=== PATIENT | male | born 1955 | race Two or more races ===

== ENCOUNTER 2024-10-18 13:50 | Inpatient (IN) ==
--- NOTE | 2024-10-18 14:32 | Emergency Department Note ---
Impression & Plan Back pain Still a patient ED Provider Note HPI: History obtained from Patient and family at the bedside. The patient is a 69-year-old male who presents emergency department with his son in law and family at the bedside of concern for back pain. Patient son states that the patient had multiple falls recently and was ultimately diagnosed with a subdural hematoma here in the ER earlier this month that required evacuation at [facility] on 10/11/2024. According to family, after the patient's procedure the patient did have to stay on his back for a long period of time because he had drains placed. Over the past several days the patient has had increased difficulty with ambulation. His son in law states that this has been the case ever since his surgery. He requires full weight support to ambulate anywhere according to his son-in-law at the bedside. Patient's over the past several days has had worsening lower back pain. He denies any saddle anesthesia, denies any urinary incontinence, denies any recent fever. Patient states he actually did have this back pain prior to his surgery for the subdural hemorrhage however it is acutely worsened ever since he was inpatient for the procedure. ROS: - Per HPI Differential Diagnosis: Degenerative disease of the lumbar spine, compression fracture, herniated lumbar disc, cauda equina syndrome, amongst other potential pathologies. *Outpatient medications and allergy history reviewed. PE: General: Alert, frail-appearing, no acute distress HEENT: Normocephalic, trachea midline Eyes: Extraocular eye movement is intact, no scleral erythema Pulmonary: Clear to auscultation bilaterally, no wheezing Cardio: Regular rate and rhythm GI: Abdomen is soft to palpation : No suprapubic tenderness MSK: No evidence of trauma or malformation of the extremities, no edema Skin: No evidence of rash Neuro: Alert, no focal deficits, 5 out of 5 strength with dorsiflexion and plantarflexion of the bilateral lower extremities, minimal flexion at the bilateral hips secondary to pain in the back Psychiatric: Cooperative INDEPENDENT INTERPRETATIONS: bus monitor: (As interpreted by myself): - An order was placed for continuous cardiac monitoring - Patient was noted to be in sinus rhythm with a rate of 80 Interventions provided in ED: - IV morphine, IV Zofran Medical Decision Making: IV was established and lab work obtained, patient was placed on registered nurse cardiac. Lab work shows a mild leukocytosis at 12.8, hemoglobin is normal, platelet count is normal, CMP does not show any evidence of any critical findings. Urinalysis shows trace leukocyte esterase but no evidence of any blood. CT imaging of the lumbar spine was obtained that shows chronic appearing compression fracture at L1, moderate to severe canal narrowing is also noted at the L4-L5 level. On my reassessment the patient was attempting to give a urine sample and was unable to. He states he is actually had some difficulty urinating over about the past 24 hours and feels that he is retaining. Given his acutely worsening pain and urinary retention, MRI imaging of the lumbar spine was ordered. There was a delay to obtain MRI secondary to multiple other patients requiring MRIs as well as the patient requiring extensive clearance given his recent surgery. Patient was given an additional dose of morphine on my reassessment as he still had some pain. At the time of signout to my colleague the patient is next in line to receive an MRI of his lumbar spine to rule out cauda equina syndrome/compression given his urinary retention and back pain. At change of shift I did discuss the patient's plan of care with my colleague, Dr. Etienne, and he will follow-up on MRI imaging for the patient's final disposition. If MRI does not show any acute surgical abnormalities or cauda equina syndrome plan will be to admit the patient here to the hospital for PT/OT given his ambulatory dysfunction and for pain control. Patient and his son-in-law at the bedside were in agreement to this plan, patient was signed out to my colleague in stable condition pending MRI. Disposition discussion held by myself with: - Patient and son-in-law at the bedside Disposition: Handoff Augie Gallardo DO Emergency Medicine Past Med/Surg History Problem List (Updated 10/18/24 @ 20:59 by Augie Gallardo DO) Back pain (Acute) Fall (Acute) Right shoulder pain (Acute) Head injury (Acute) Bilateral subdural hematomas (Acute) Trauma (Acute) Social History Smoking Status: Never smoker Feels Safe at Home: Yes Allergies Allergies Allergy/AdvReac Type Severity Reaction Status Date / Time No Known Allergies Allergy Verified 10/18/24 16:16 Home Meds Home Medications Medication Instructions Recorded Confirmed multivit,calcium,min-folic acid 1 tab PO DAILY 10/18/24 10/18/24 240 mcg-D3 25 mcg-lycop 300 mcg tablet (One A Day Men Complete) Results & Data (ED) Vital Signs Vital Signs - 24 hr 10/18/24 13:56 10/18/24 14:01 10/18/24 14:43 Temperature 37.2 C Temperature Source Oral Pulse Rate 90 81 86 Pulse Rate from SpO2 Sensor Respiratory Rate 21 20 Blood Pressure 156/92 H 144/79 H Blood Pressure Mean 113 111 Pulse Oximetry 95 97 Oxygen Delivery Method Room Air Room Air Sepsis Recent Fever Within 48 Hours No Sepsis New/Unexplained Change in Mental Status N/A Sepsis Action Taken by Nursing No Action Required 10/18/24 14:44 10/18/24 16:00 10/18/24 18:03 Temperature Temperature Source Pulse Rate 92 H 72 Pulse Rate from SpO2 Sensor 92 H Respiratory Rate 19 Blood Pressure 129/84 Blood Pressure Mean 99 Pulse Oximetry 95 97 Oxygen Delivery Method Room Air Room Air Sepsis Recent Fever Within 48 Hours Sepsis New/Unexplained Change in Mental Status Sepsis Action Taken by Nursing 10/18/24 18:36 10/18/24 18:48 10/18/24 19:09 Temperature Temperature Source Pulse Rate 87 75 83 Pulse Rate from SpO2 Sensor 75 75 83 Respiratory Rate 17 18 21 Blood Pressure 148/78 H 125/81 158/86 H Blood Pressure Mean 101 95 110 Pulse Oximetry 96 96 95 Oxygen Delivery Method Room Air Room Air Room Air Sepsis Recent Fever Within 48 Hours Sepsis New/Unexplained Change in Mental Status Sepsis Action Taken by Nursing 10/18/24 19:30 10/18/24 19:54 Temperature Temperature Source Pulse Rate 76 82 Pulse Rate from SpO2 Sensor 76 79 Respiratory Rate 22 22 Blood Pressure 154/74 H 152/82 H Blood Pressure Mean 100 105 Pulse Oximetry 96 97 Oxygen Delivery Method Room Air Room Air Sepsis Recent Fever Within 48 Hours Sepsis New/Unexplained Change in Mental Status Sepsis Action Taken by Nursing Laboratory Data 10/18/24 14:00 10/18/24 14:00 Lab Results 10/18/24 10/18/24 Range/Units 14:00 17:09 WBC 12.82 H (4.8-10.8) K/ul RBC 4.88 (4.70-6.10) M/uL Hgb 14.4 (14.0-18.0) g/dl Hct 42.7 (42.0-52.0) % MCV 87.5 (80.0-100.0) fL MCH 29.5 (25.0-34.0) pg MCHC 33.7 (32.0-36.0) g/dL RDW Std Deviation 41.9 (36.4-46.3) fL RDW Coeff of Shaheed 13.1 (11.5-14.5) % Plt Count 207 (130-400) K/uL MPV 10.5 (9.4-12.4) fL Immature Gran % (Auto) 0.3 % Neut % (Auto) 76.5 % Lymph % (Auto) 13.3 % Webster % (Auto) 9.6 % Eos % (Auto) 0.1 % Baso % (Auto) 0.2 % Neut # (Auto) 9.81 H (1.40-6.50) K/uL Lymph # (Auto) 1.70 (1.20-3.40) K/uL Webster # (Auto) 1.23 H (0.11-0.59) K/uL Eos # (Auto) 0.01 (0.00-0.50) K/uL Baso # (Auto) 0.03 (0.00-0.20) K/uL Immature Gran # (Auto) 0.04 (0.01-0.20) K/uL PT 11.4 (9.0-12.0) Seconds INR 1.1 (0.9-1.1) Sodium 135 L (136-145) mmol/L Potassium 4.4 (3.5-5.1) mmol/L Chloride 102 (98-107) mmol/L Carbon Dioxide 27 (21-32) mmol/L Anion Gap 6 (3-11) BUN 16 (6-23) mg/dl Creatinine 0.68 (0.6-1.4) mg/dl Est Cr Clr Drug Dosing 83.9 ml/min eGFR 101.88 BUN/Creatinine Ratio 23.5 H (10-20) Glucose 157 H (70-99(Fasting)) mg/dl Calcium 8.9 (8.6-10.3) mg/dl Total Bilirubin 0.7 (0.2-1.0) mg/dl AST 41 H (13-39) U/L ALT 45 (7-52) U/L Alkaline Phosphatase 85 (34-104) U/L Total Protein 7.5 (6.0-8.3) gm/dl Albumin 3.7 (3.4-5.0) gm/dl Globulin 3.8 (2.5-4.0) gm/dl Albumin/Globulin Ratio 1.0 (0.9-2) Lipase 42 (11-82) U/L Urine Color Yellow Urine Appearance Clear (Clear) Urine pH 5.5 (4.5-7.5) Ur Specific [place] 1.015 (1.000-1.030) Urine Protein Negative (Negative) Urine Glucose (UA) Negative (Negative) Urine Ketones Negative (Negative) Urine Blood Negative (Negative) Urine Nitrite Negative (Negative) Urine Bilirubin Negative (Negative) Urine Urobilinogen Negative (Negative) Ur Leukocyte Esterase Trace H (Negative) Urine WBC (Auto) 0-5 (0-5) /hpf Urine RBC (Auto) 0-2 (0-2) /hpf U Hyaline Cast (Auto) 0-2 (0-2) /lpf U Epithel Cells (Auto) 0-2 (0-2) /hpf Urine Bacteria (Auto) None Seen (None Seen) Urine Comment Administered Medications Discontinued Medications Sodium Chloride (Nss) 500 mls @ 999 mls/hr IV .Q31M STA Stop: 10/18/24 14:55 Last Infusion: 10/18/24 15:25 Dose: Infused Documented By: Admin: 10/18/24 14:41 Dose: 999 mls/hr Documented By: ML Lidocaine HCl (Lidocaine 2% Jelly 5 Ml Tube) Confirm Administered Dose 5 ml EXT .STK-MED ONE Stop: 10/18/24 18:13 Last Admin: 10/18/24 18:19 Dose: 5 ml Documented By: MIROSLAVA Morphine Sulfate (Morphine Sulfate 4 Mg/Ml 1 Ml Carp\Vial) 4 mg IV NOW STA Stop: 10/18/24 14:26 Last Admin: 10/18/24 14:40 Dose: 4 mg Documented By: ML Ondansetron HCl (Ondansetron Inj 2 Mg/Ml 2 Ml Vial) 4 mg IV NOW STA Stop: 10/18/24 14:26 Last Admin: 10/18/24 14:40 Dose: 4 mg Documented By: EUSEBIO Imaging Data Radiologist's Impression: Lumbar Spine CT 10/18/24 14:36 CT lumbar spine wo con CLINICAL HISTORY: back pain COMPARISON STUDY: None FINDINGS: There is osteopenia. There is mild chronic-appearing height loss at the L1 vertebral body. No acute appearing fracture or subluxation seen. There is diffuse degenerative disc disease and lower lumbar facet degeneration most advanced at L4-5. There is mild bilateral neural foraminal narrowing at L4-5 and L5-S1. There is moderate to severe central canal narrowing at L4-5 due to combination of disc bulge and ligamentum flavum and facet hypertrophy. There is a partially visualized cyst at the right kidney. There are mild atherosclerotic calcifications. No abdominal aortic aneurysm. IMPRESSION: 1. Mild chronic-appearing vertebral body compression fracture at L1. No other lumbar fracture or subluxation is seen. 2. Lumbar degenerative findings with moderate to severe central canal narrowing at L4-5. ACT 112: Negative or not required by law. Electronically signed by: Cullen Ryder M.D. 10/18/2024 3:24 PM Shoulder X-Ray 10/18/24 14:36 XR shoulder RT min 2V routine CLINICAL HISTORY: pain, recent fall COMPARISON: 10/06/2024 FINDINGS: Displaced fracture distally at the right clavicle again seen. There is one full shaft width inferior displacement with mild override, stable. The tip of the fracture at the distal clavicle appears closer to the skin surface than on the prior exam. No new fracture or dislocation seen. IMPRESSION: 1. Distal tip of the fractured clavicle appears closer to the skin surface than on the prior exam. 2. Otherwise stable alignment. ACT 112: Negative or not required by law. Electronically signed by: Cullen Ryder M.D. 10/18/2024 3:28 PM Discharge Plan Visit Data Chief Complaint: Back Injury/Pain Stated Complaint: BACK PAIN ED Provider: uAgie Gallardo Discharge Problem: Back pain Patient Disposition: Still a Patient Condition: Fair Forms Stand Alone Forms: [facility] [employer] Prescriptions Prescriptions: No Action One A Day Men Complete 240-25-300 mcg Tablet 1 tab PO DAILY Referrals Referrals: PCP,NO [Primary Care Provider] -
[2024-10-18 14:37] LABS: Basophils # (auto) 0.03 K/uL (0.00-0.20); Basophils % (auto) 0.2 %; Eosinophils # (auto) 0.01 K/uL (0.00-0.50); Eosinophils % (auto) 0.1 %; Hematocrit (blood only) 42.7 % (42.0-52.0); Hemoglobin 14.4 g/dl (14.0-18.0); Immature Granulocytes # (auto) 0.04 K/uL (0.01-0.20); Immature Granulocytes % (auto) 0.3 %; Lymphocytes % (auto) 13.3 %; Mean Corpuscular Hemoglobin 29.5 pg (25.0-34.0); Mean Corpuscular Hgb Conc 33.7 g/dL (32.0-36.0); Mean Corpuscular Volume 87.5 fL (80.0-100.0); Mean Platelet Volume 10.5 fL (9.4-12.4); Monocytes # (auto) 1.23 K/uL (0.11-0.59); Monocytes % (auto) 9.6 %; Neutrophils # (auto) 9.81 K/uL (1.40-6.50); Neutrophils % (auto) 76.5 %; Platelet Count 207 K/uL (130-400); RDW Coefficient of Variation 13.1 % (11.5-14.5); RDW Standard Deviation 41.9 fL (36.4-46.3); Red Blood Count 4.88 M/uL (4.70-6.10); White Blood Count 12.82 K/ul (4.8-10.8)
[2024-10-18] MEDS: ONDANSETRON INJ 2 MG/ML 2 ML VIAL IV STA (14:40)
[2024-10-18] MEDS: MoRPHine SULFATE 4 MG/ML 1 ML CARP\\VIAL IV STA ×3 (14:40→23:19)
[2024-10-18] MEDS: SODIUM CHLORIDE 0.9% 500 ML IV STA (14:41)
[2024-10-18 14:55] LABS: BUN Creatinine Ratio 23.5 (10-20); Bilirubin,Total 0.7 mg/dl (0.2-1.0); Calcium 8.9 mg/dl (8.6-10.3); Creatinine Clr Calc Pharmacy 83.9 ml/min; Globulin 3.8 gm/dl (2.5-4.0); Potassium 4.4 mmol/L (3.5-5.1); Total Protein 7.5 gm/dl (6.0-8.3)
[2024-10-18 15:20] LABS: INR 1.1 (0.9-1.1); Prothrombin Time 11.4 Seconds (9.0-12.0)
--- NOTE | 2024-10-18 15:26 | CT Scan Report ---
CT lumbar spine wo con CLINICAL HISTORY: back pain COMPARISON STUDY: None FINDINGS: There is osteopenia. There is mild chronic-appearing height loss at the L1 vertebral body. No acute appearing fracture or subluxation seen. There is diffuse degenerative disc disease and lower lumbar facet degeneration most advanced at L4-5. There is mild bilateral neural foraminal narrowing at L4-5 and L5-S1. There is moderate to severe central canal narrowing at L4-5 due to combination of disc bulge and ligamentum flavum and facet hypertrophy. There is a partially visualized cyst at the right kidney. There are mild atherosclerotic calcificatio ns. No abdominal aortic aneurysm. IMPRESSION: 1. Mild chronic-appearing vertebral body compression fracture at L1. No other lumbar fracture or subl uxation is seen. 2. Lumbar degenerative findings with moderate to severe central canal narrowing at L4-5. ACT 112: Negative or not required by law. Electronically signed by: Cullen Ryder M.D. 10/18/2024 3:24 PM
--- NOTE | 2024-10-18 15:29 | XRay Report ---
XR shoulder RT min 2V routine CLINICAL HISTORY: pain, recent fall COMPARISON: 10/06/2024 FINDINGS: Displaced fracture distally at the right clavicle again seen. There is one full shaft widt h inferior displacement with mild override, stable. The tip of the fracture at the distal clavicle ap pears closer to the skin surface than on the prior exam. No new fracture or dislocation seen. IMPRESSION: 1. Distal tip of the fractured clavicle appears closer to the skin surface than on the prior exam. 2. Otherwise stable alignment. ACT 112: Negative or not required by law. Electronically signed by: Cullen Ryder M.D. 10/18/2024 3:28 PM
[2024-10-18 17:37] LABS: Appearance Urine Clear (Clear); Bacteria Urine Automated None Seen (None Seen); Bilirubin Urine Negative (Negative); Blood Urine Negative (Negative); Cast Urine Automated 0-2 /lpf (0-2); Color Urine Yellow; Epithelial Cell Urine Auto 0-2 /hpf (0-2); Glucose Urine UA Negative (Negative); Ketones Urine Negative (Negative); Leukocyte Esterase Urine Trace (Negative); Nitrite Urine Negative (Negative); Protein Urine Negative (Negative); RBC Urine Automated 0-2 /hpf (0-2); Specific Gravity Urine 1.015 (1.000-1.030); Urobilinogen Urine Negative (Negative); WBC Urine Automated 0-5 /hpf (0-5); pH Urine 5.5 (4.5-7.5)
[2024-10-18] MEDS: LIDOCAINE 2% JELLY 5 ML TUBE EXT ONE (18:19)
--- NOTE | 2024-10-18 21:04 | Emergency Department Note ---
ED Visit Note 2101: Signout from Dr. Gallardo. Patient has had back pain for the last 2 weeks. No recent falls. Patient having difficulty ambulating. Follow-up MRI of the lumbar spine ordered by Dr. Gallardo. If no evidence of cauda equina or cord compression patient to be admitted for PT OT at this facility. If MRI shows cauda equina or cord compression transfer to [place] 2114: External medical records reviewed. Patient was seen on October 06 and had fallen and had bilateral subdurals. Will add on CT of the head in addition to the MRI is pending ordered by Dr. Gallardo. 2306: Vital signs stable. Discussed with the son at bedside and he stated that the patient has not had any falls since his last visit to this emergency department on October 06, 2024. Received a call by Dr. Montejo radiology. CT of the head: Exam(s): CT HEAD Without Contrast EXAM: CT Head Without Intravenous Contrast CLINICAL HISTORY: Reason for exam: difficulty ambulating. TECHNIQUE: Axial computed tomography images of the head/brain without intravenous contrast. CTDI is 68.31 mGy and DLP is 1101.74 mGy-cm. Automated exposure control was utilized for the study. A dose lowering technique was utilized adhering to the principles of ALARA. Mild to moderate motion artifact. COMPARISON: Head CT 10/06/24. FINDINGS: Brain/Ventricles: Significant improved bilateral convexity subdural hematoma and midline shift. There is a chronic right convexity subdural hematoma or hygroma measuring 5 mm, with minimal residual acute products of hemorrhage in the frontal region. Mild acute products of hemorrhage in the left frontal region. There is mild acute intraventricular hemorrhage. There is subarachnoid hemorrhage in the medial parieto- occipital region. There is high density along the posterior falx and bilateral tentorium, acute SDH in these regions not excluded. No hydrocephalus or herniation. Bones/Soft tissues: Bilateral high temporal bur holes in the interval. Visualized Sinuses/Mastoid air cells: Unremarkable. IMPRESSION: 1. Significant improvement acute bilateral SDH, with interval bur holes evident. 2. Acute on chronic SDH right hemisphere, and mild acute SDH left frontal, possibly also posterior falx/tentorium. 3. Intraventricular hemorrhage and subarachnoid hemorrhage also present. 4. It is unclear if this reflects redistribution of the hemorrhage, or if there is been interval new/acute hemorrhage. Dr. Montejo stated that the subarachnoid blood could be related to the recent b ur hole placement. 2310: Was able to obtain the CT of the head report from [facility] on October 08: IMPRESSION: 1. Interval decrease in bilateral mixed density holohemispheric subdural hematoma status post subdural evacuation port system placement and middle meningeal artery embolization bilaterally since 10/07/2024. 2. Decrease in mass effect and midline shift. 3. New areas of subarachnoid acute blood products bilaterally most prominent along the right occipital lobe. 4: MRI of the L-spine came back: Exam(s): MRI L SPINE Without Contrast EXAM: MR Lumbar Spine Without Intravenous Contrast CLINICAL HISTORY: Reason for exam: back pain, urinary retention. TECHNIQUE: Magnetic resonance images of the lumbar spine without intravenous contrast in multiple planes. Moderate motion artifact. COMPARISON: CT lumbar spine, same day, and head CT, same day. FINDINGS: Vertebrae: Severe T11 compression deformity with mild residual edema, indicating ongoing healing. No significant retropulsion. Chronic endplate flattening at additional levels most notable inferior endplate L1. No other marrow edema. No discitis or osteomyelitis. Conus: Equivocal diffuse abnormal signal. There is abnormal signal in the CSF in the thoracolumbar junction to the level of L4-5, probably subarachnoid hemorrhage, given head CT findings. Soft tissues: No epidural or psoas abscess. No epidural hematoma. DISCS/SPINAL CANAL/NEURAL FORAMINA: L1-L2: Moderate disc and osteophyte. L2-L3: Mild bulge. L3-L4: Mild bulge. L4-L5: Moderate disc bulge with severe central spinal stenosis. L5-S1: Unremarkable. OTHER: Severe facet hypertrophy. Other than L1-2, lumbar disc heights are. IMPRESSION: 1. Suspect subarachnoid hemorrhage accounting for the signal alteration in the CSF at the thoracolumbar junction. 2. No definite epidural hematoma. 3. Severe central spinal stenosis L4-5, degenerative. 4. Mild residual edema involving the T11 compression fracture, probably reflects ongoing healing. Communications: Call Doctor Above results Electronically signed by: Aster Yancey M.D. 10/18/24 23:12 PM Dictated: 10/18/242311 Transcribed: 10/18/242311 Dr. Montejo stated that the subarachnoid blood is most likely from the head. I did discuss the patient's CT report from [facility] from [address] Montejo stated that the blood in the subarachnoid area and in the intraventricular area was most likely due to resorption of the blood after the bur hole placement. 2349: Spoke with Dr. Blunt from [facility] neurosurgery. The images were sent to him to review for a life image and he reviewed the images from [facility] CT of the head. He states that the same blood is seen on the CT from October 10 that was done at [facility]. He stated that the blood that we are seeing could also be residual contrast from angiography that was done which is also what Dr. Montejo had mention. He states there is no need for emergent transfer at this time. Patient will be admitted for PT/OT eval. Dr. Blunt [place] neuro[facility] also states to repeat the CT of the head in the morning but again no need for emergent transfer at this time. 0010: Patient will be admitted to the [facility] hospitalist team. They were made aware of the plan and the recommendations by [place] neurosurgery to repeat the CT of the head in the morning. .
--- NOTE | 2024-10-18 22:53 | CT Scan Report ---
Exam(s): CT HEAD Without Contrast EXAM: CT Head Without Intravenous Contrast CLINICAL HISTORY: Reason for exam: difficulty ambulating. TECHNIQUE: Axial computed tomography images of the head/brain without intravenous contrast. CTDI is 68.31 mGy and DLP is 1101.74 mGy-cm. Automated exposure control was utilized for the study. A dose lowering technique was utilized adhering to the principles of ALARA. Mild to moderate motion artifact. COMPARISON: Head CT 10/06/24. FINDINGS: Brain/Ventricles: Significant improved bilateral convexity subdural hematoma and midline shift. There is a chronic right convexity subdural hematoma or hygroma measuring 5 mm, with minimal residual acute products of hemorrhage in the frontal region. Mild acute products of hemorrhage in the left frontal region. There is mild acute intraventricular hemorrhage. There is subarachnoid hemorrhage in the medial parieto- occipital region. There is high density along the posterior falx and bilateral tentorium, acute SDH in these regions not excluded. No hydrocephalus or herniation. Bones/Soft tissues: Bilateral high temporal bur holes in the interval. Visualized Sinuses/Mastoid air cells: Unremarkable. IMPRESSION: 1. Significant improvement acute bilateral SDH, with interval bur holes evident. 2. Acute on chronic SDH right hemisphere, and mild acute SDH left frontal, possibly also posterior falx/tentorium. 3. Intraventricular hemorrhage and subarachnoid hemorrhage also present. 4. It is unclear if this reflects redistribution of the hemorrhage, or if there is been interval new/acute hemorrhage. Communications: Call Doctor Above results Electronically signed by: Aster Yancey M.D. 10/18/24 22:53 PM
--- NOTE | 2024-10-18 23:13 | Magnetic Resonance Report ---
Exam(s): MRI L SPINE Without Contrast EXAM: MR Lumbar Spine Without Intravenous Contrast CLINICAL HISTORY: Reason for exam: back pain, urinary retention. TECHNIQUE: Magnetic resonance images of the lumbar spine without intravenous contrast in multiple planes. Moderate motion artifact. COMPARISON: CT lumbar spine, same day, and head CT, same day. FINDINGS: Vertebrae: Severe T11 compression deformity with mild residual edema, indicating ongoing healing. No significant retropulsion. Chronic endplate flattening at additional levels most notable inferior endplate L1. No other marrow edema. No discitis or osteomyelitis. Conus: Equivocal diffuse abnormal signal. There is abnormal signal in the CSF in the thoracolumbar junction to the level of L4-5, probably subarachnoid hemorrhage, given head CT findings. Soft tissues: No epidural or psoas abscess. No epidural hematoma. DISCS/SPINAL CANAL/NEURAL FORAMINA: L1-L2: Moderate disc and osteophyte. L2-L3: Mild bulge. L3-L4: Mild bulge. L4-L5: Moderate disc bulge with severe central spinal stenosis. L5-S1: Unremarkable. OTHER: Severe facet hypertrophy. Other than L1-2, lumbar disc heights are. IMPRESSION: 1. Suspect subarachnoid hemorrhage accounting for the signal alteration in the CSF at the thoracolumbar junction. 2. No definite epidural hematoma. 3. Severe central spinal stenosis L4-5, degenerative. 4. Mild residual edema involving the T11 compression fracture, probably reflects ongoing healing. Communications: Call Doctor Above results Electronically signed by: Aster Yancey M.D. 10/18/24 23:12 PM
--- NOTE | 2024-10-19 00:15 | History & Physical Report ---
Date of Service October 19, 2024 Assessment & Plan (1) Back pain: Plan 69-year-old male PMHx recent subdural hematoma that required evacuation on 10/11/2024 and had bilateral drains placed who is presenting with back pain worsening over the past 2 weeks with associated falls. ED evaluation reveals leukocytosis 12.82, H&H stable; PT/INR WNL; CMP potassium 135, BUN/creatinine ratio 23.5, glucose 157, AST 41; UA negative for infection; lumbar spine CT mild chronic appearing vertebral body compression fracture at L1, no other lumbar fracture or subluxation seen, lumbar degenerative findings with moderate severe central canal narrowing at L4-L5; R shoulder XR. Distal tip of fracture cl avicle appears closer to the skin surface but otherwise stable; head CT significant improvement of acute bilateral SDH with interval douglas holes, acute on chronic SDH right hemisphere mild acute SDH L frontal possibly also posterior falx/tentorium, intraventricular hemorrhage and subarachnoid hemorrhage present; lumbar spine MRI suspicious for subarachnoid hemorrhage, no definite epidural hematoma, severe central spinal stenosis L4-L5 degenerative, mild residual edema involving T11 compression fracture reflects ongoing healing.; Provided with 500 mL NSS, Zofran 4 mg IV, morphine 4 mg IV x 3 in ED. 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 No recent falls. Patient does have known T11-L1 compression fracture, normal healing noted on imaging. ED provider discussed with Dr. Montejo and Dr. Blunt neurosurgeon at [facility] CT head imaging. Providers believe CT head imaging demonstrates residual contrast versus reabsorption of blood after bur hole placement. Suspect multifactorial given degenerative changes as well as compression fracture and normal healing. Given MRI does not have acute surgical abnormalities or cauda equina syndrome, patient is to be admitted at [facility] and does not require transfer at this time. - CBC leukocytosis 12.82, H&H 14.4/42.7; UA negative for infection - Lumbar spine CT mild chronic appearing vertebral body compression fracture at L1, no other lumbar fracture or subluxation seen, lumbar degenerative findings with moderate severe central canal narrowing at L4-L5 - Head CT significant improvement of acute bilateral SDH with interval douglas holes, acute on chronic SDH right hemisphere mild acute SDH L frontal possibly also posterior falx/tentorium, intraventricular hemorrhage and subarachnoid hemorrhage present - Lumbar spine MRI suspicious for subarachnoid hemorrhage, no definite epidural hematoma, severe central spinal stenosis L4-L5 degenerative, mild residual edema involving T11 compression fracture reflects ongoing healing - Repeat head CT ordered for 0800 on 10/19/2024 - Morphine prn pain - avoid NSAIDs - PT/OT consults placed - appreciate assistance - Family asked about having an orthopedic consult - can consider consulting as appropriate, does have an out patient follow up on 10/21/[address] [facility] orthopedics. Dispo: Admit, PCU VTE prophylaxis: SCDs This document was dictated utilizing Xolve. Please excuse any grammatical errors that may be secondary to use of this software. Admission and Anticipated Discharge Date Admission Date: 10/19/2024 History of Present Illness Chief Complaint: Back pain Primary Care Provider: NO PCP 69-year-old male PMHx recent subdural hematoma that required evacuation on 10/11/2024 and had bilateral drains placed who is presenting with back pain worsening over the past 2 weeks. Was initially evaluated in the ED on 10/06/2024 after sustaining a fall off a porch that resulted in identification of bilateral acute appearing subdural hematomas, R >L, 8 mm leftward shift. Patient was transferred to [facility] at that time where a douglas hole completed with drains. Patient presenting now for worsening back pain, worsening 4 days CORPORATE SECURITY MANAGER. Mainly lower back pain, radiation down BLE. Has not had any recent falls. Pain is localized to low back, sharp in nature. Pain down bilateral legs feels like tightness, occasional burning sensation at heels. Patient without bowel or bladder incontinence. No saddle anesthesia. Patient has been unable to ambulate independently, requiring assistance from family members. Difficulty sitting up secondary to pain. Denies chest pain, SOB, palpitations, abdominal pain, N/V/D/C, numbness/tingling aside from legs, URI symptoms, LUTS, fever/chills, weakness, syncope or LOC. Patient does not take any daily medications. Has been trying [id number] medications to help alleviate pain, minimal relief. Patient son-in-law is present in room at time of visit, helps provide history. Patient is to follow with [facility] orthopedic provider on 10/21/2024. ED evaluation reveals leukocytosis 12.82, H&H stable; PT/INR WNL; CMP potassium 135, BUN/creatinine ratio 23.5, glucose 157, AST 41; UA negative for infection; lumbar spine CT mild chronic appearing vertebral body compression fracture at L1, no other lumbar fracture or subluxation seen, lumbar degenerative findings with moderate severe central canal narrowing at L4-L5; R shoulder XR. Distal tip of fracture clavicle appears closer to the skin surface but otherwise stable; head CT significant improvement of acute bilateral SDH with interval douglas holes, acute on chronic SDH right hemisphere mild acute SDH L frontal possibly also posterior falx/tentorium, intraventricular hemorrhage and subarachnoid hemorrhage present; lumbar spine MRI suspicious for subarachnoid hemorrhage, no definite epidural hematoma, severe central spinal stenosis L4-L5 degenerative, mild residual edema involving T11 compression fracture reflects ongoing healing.; Provided with 500 mL NSS, Zofran 4 mg IV, morphine 4 mg IV x [address] Please see Dr[address] Kevin's attestation for adjustments/additions to treatment plan. Allergies Allergy/AdvReac Type Severity Reaction Status Date / Time No Known Allergies Allergy Verified 10/18/24 16:16 Home Medications Medication Instructions Recorded Confirmed Type multivit,calcium,min-folic acid 1 tab PO DAILY 10/18/24 10/18/24 History 240 mcg-D3 25 mcg-lycop 300 mcg tablet (One A Day Men Complete) Past Med/Surg History Problem List (Updated 10/22/24 @ 14:42 by Melquiades Miller MD) Constipation Urinary retention H/O traumatic subdural hematoma Compression fracture of thoracic vertebra Compression fracture of lumbar vertebra Hyperglycemia Low back pain Back pain (Acute) Social History Smoking Status: Never smoker Second Hand Exposure: No; Do You Dip or Chew Tobacco: No; Hx Alcohol Use: No Hx Substance Use: No Preferred Language: Mongolian Communication Ability: Effective 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 Beliefs That Will Affect Care: Anabaptism and Cultural Current Living Situation: Family Current Living Situation Comment: lives with daughter and son in law Feels Safe at Home: Yes Assistive Devices: None Review of Systems Review of Systems: All systems reviewed & are unremarkable except as noted in Subjective Physical Exam Physical Exam: General: No acute distress, appears uncomfortable laying in bed Skin: Warm and dry Head: Normocephalic, atraumatic Eyes: PERRL, conjunctivae clear, sclera non-icteric ENT: External ear and ear canal without swelling; nose atraumatic; good dentition, tongue normal appearance, pharynx normal Neck: Supple, no LAD Cardio: RRR, no M/G/R, S1 and S2 normal Resp: No respiratory distress, Lungs CTA in all lobes bilaterally, no wheezes, rales, or rhonchi Abdomen: Soft, symmetric, nontender; No masses or hepatosplenomegaly; Bowel sounds normoactive MSK: No deformities; pulses palpable and equal; no edema. Neuro: Awake, alert; Sensation intact bilaterally; CN grossly intact Psych: Appropriate mood and affect; good judgement and insight. Son is present in room at time of visit. Results & Data Results & Data Vital Signs (Past 12 Hours) Vital Signs Temp Pulse Resp BP Pulse Ox O2 Del Method 10/18/24 22:33 88 24 144/86 H 98 Room Air 10/18/24 22:15 94 H 15 144/86 H 95 Room Air 10/18/24 22:14 92 H 18 145/92 H 95 Room Air 10/18/24 22:12 91 H 21 97 Room Air 10/18/24 20:36 84 18 154/83 H 95 Room Air 10/18/24 19:54 82 22 152/82 H 97 Room Air 10/18/24 19:30 76 22 154/74 H 96 Room Air 10/18/24 19:09 83 21 158/86 H 95 Room Air 10/18/24 18:48 75 18 125/81 96 Room Air 10/18/24 18:36 87 17 148/78 H 96 Room Air 10/18/24 18:03 72 10/18/24 16:00 92 H 19 129/84 97 Room Air 10/18/24 14:44 95 Room Air 10/18/24 14:43 86 20 144/79 H 97 Room Air 10/18/24 14:01 81 10/18/24 13:56 37.2 C 90 21 156/92 H 95 Room Air Laboratory Results 10/18/24 10/18/24 17:09 14:00 WBC 12.82 H RBC 4.88 Hgb 14.4 Hct 42.7 MCV 87.5 MCH 29.5 MCHC 33.7 RDW Std Deviation 41.9 RDW Coeff of Shaheed 13.1 Plt Count 207 MPV 10.5 Immature Gran % (Auto) 0.3 Neut % (Auto) 76.5 Lymph % (Auto) 13.3 [place] % (Auto) 9.6 Eos % (Auto) 0.1 Baso % (Auto) 0.2 Neut # (Auto) 9.81 H Lymph # (Auto) 1.70 [place] # (Auto) 1.23 H Eos # (Auto) 0.01 Baso # (Auto) 0.03 Immature Gran # (Auto) 0.04 PT 11.4 INR 1.1 Sodium 135 L Potassium 4.4 Chloride 102 Carbon Dioxide 27 Anion Gap 6 BUN 16 Creatinine 0.68 Est Cr Clr Drug Dosing 83.9 eGFR 101.88 BUN/Creatinine Ratio 23.5 H Glucose 157 H Calcium 8.9 Total Bilirubin 0.7 AST 41 H ALT 45 Alkaline Phosphatase 85 Total Protein 7.5 Albumin 3.7 Globulin 3.8 Albumin/Globulin Ratio 1.0 Lipase 42 Urine Color Yellow Urine Appearance Clear Urine pH 5.5 Ur Specific [place] 1.015 Urine Protein Negative Urine Glucose (UA) Negative Urine Ketones Negative Urine Blood Negative Urine Nitrite Negative Urine Bilirubin Negative Urine Urobilinogen Negative Ur Leukocyte Esterase Trace H Urine WBC (Auto) 0-5 Urine RBC (Auto) 0-2 U Hyaline Cast (Auto) 0-2 U Epithel Cells (Auto) 0-2 Urine Bacteria (Auto) None Seen Urine Comment Diagnostic Findings Lumbar Spine CT 10/18/24 14:36 CT lumbar spine wo con CLINICAL HISTORY: back pain COMPARISON STUDY: None FINDINGS: There is osteopenia. There is mild chronic-appearing height loss at the L1 vertebral body. No acute appearing fracture or subluxation seen. There is diffuse degenerative disc disease and lower lumbar facet degeneration most advanced at L4-5. There is mild bilateral neural foraminal narrowing at L4-5 and L5-S1. There is moderate to severe central canal narrowing at L4-5 due to combination of disc bulge and ligamentum flavum and facet hypertrophy. There is a partially visualized cyst at the right kidney. There are mild atherosclerotic calcifications. No abdominal aortic aneurysm. IMPRESSION: 1. Mild chronic-appearing vertebral body compression fracture at L1. No other lumbar fracture or subluxation is seen. 2. Lumbar degenerative findings with moderate to severe central canal narrowing at L4-5. ACT 112: Negative or not required by law. Electronically signed by: Cullen Ryder M.D. 10/18/2024 3:24 PM Shoulder X-Ray 10/18/24 14:36 XR shoulder RT min 2V routine CLINICAL HISTORY: pain, recent fall COMPARISON: 10/06/2024 FINDINGS: Displaced fracture distally at the right clavicle again seen. There is one full shaft width inferior displacement with mild override, stable. The tip of the fracture at the distal clavicle appears closer to the skin surface than on the prior exam. No new fracture or dislocation seen. IMPRESSION: 1. Distal tip of the fractured clavicle appears closer to the skin surface than on the prior exam. 2. Otherwise stable alignment. ACT 112: Negative or not required by law. Electronically signed by: Cullen Ryder M.D. 10/18/2024 3:28 PM Lumbar Spine MRI 10/18/24 15:43 CR Exam(s): MRI L SPINE Without Contrast EXAM: MR Lumbar Spine Without Intravenous Contrast CLINICAL HISTORY: Reason for exam: back pain, urinary retention. TECHNIQUE: Magnetic resonance images of the lumbar spine without intravenous contrast in multiple planes. Moderate motion artifact. COMPARISON: CT lumbar spine, same day, and head CT, same day. FINDINGS: Vertebrae: Severe T11 compression deformity with mild residual edema, indicating ongoing healing. No significant retropulsion. Chronic endplate flattening at additional levels most notable inferior endplate L1. No other marrow edema. No discitis or osteomyelitis. Conus: Equivocal diffuse abnormal signal. There is abnormal signal in the CSF in the thoracolumbar junction to the level of L4-5, probably subarachnoid hemorrhage, given head CT findings. Soft tissues: No epidural or psoas abscess. No epidural hematoma. DISCS/SPINAL CANAL/NEURAL FORAMINA: L1-L2: Moderate disc and osteophyte. L2-L3: Mild bulge. L3-L4: Mild bulge. L4-L5: Moderate disc bulge with severe central spinal stenosis. L5-S1: Unremarkable. OTHER: Severe facet hypertrophy. Other than L1-2, lumbar disc heights are. IMPRESSION: 1. Suspect subarachnoid hemorrhage accounting for the signal alteration in the CSF at the thoracolumbar junction. 2. No definite epidural hematoma. 3. Severe central spinal stenosis L4-5, degenerative. 4. Mild residual edema involving the T11 compression fracture, probably reflects ongoing healing. Communications: Call Doctor Above results Electronically signed by: Aster Yancey M.D. 10/18/24 23:[address] 10/18/24 21:04 CR Exam(s): CT HEAD Without Contrast EXAM: CT Head Without Intravenous Contrast CLINICAL HISTORY: Reason for exam: difficulty ambulating. TECHNIQUE: Axial computed tomography images of the head/brain without intravenous contrast. CTDI is 68.31 mGy and DLP is 1101.74 mGy-cm. Automated exposure control was utilized for the study. A dose lowering technique was utilized adhering to the principles of ALARA. Mild to moderate motion artifact. COMPARISON: Head CT 10/06/24. FINDINGS: Brain/Ventricles: Significant improved bilateral convexity subdural hematoma and midline shift. There is a chronic right convexity subdural hematoma or hygroma measuring 5 mm, with minimal residual acute products of hemorrhage in the frontal region. Mild acute products of hemorrhage in the left frontal region. There is mild acute intraventricular hemorrhage. There is subarachnoid hemorrhage in the medial parieto- occipital region. There is high density along the posterior falx and bilateral tentorium, acute SDH in these regions not excluded. No hydrocephalus or herniation. Bones/Soft tissues: Bilateral high temporal bur holes in the interval. Visualized Sinuses/Mastoid air cells: Unremarkable. IMPRESSION: 1. Significant improvement acute bilateral SDH, with interval bur holes evident. 2. Acute on chronic SDH right hemisphere, and mild acute SDH left frontal, possibly also posterior falx/tentorium. 3. Intraventricular hemorrhage and subarachnoid hemorrhage also present. 4. It is unclear if this reflects redistribution of the hemorrhage, or if there is been interval new/acute hemorrhage. Communications: Call Doctor Above results Electronically signed by: Aster Yancey M.D. 10/18/24 22:53 PM Medications Administered 500mL NSS Morphine 4mg IV x 3 Zofran 4mg IV Code Status & VTE Plan Code Status Full Supervising Physician Co-Signing Physician Notes I personally saw and examined the patient. I independently reviewed the labs, EKG, imaging, problem list, medication list, past medical history and family history. I verified all tompkins points and agree with Olman Vasques PA-C with the following exceptions and/or additions: 69 year old male presents to the ER with back pain. A/P Back pain, abnormal CT head - discussed with neurosurg on admission and suspected to be residual but repeat imaging recommended as above. Pain managment as above for his back pain. PG Care Time/CCT Total # of Minutes Spent Total Time Spent with Patient: Total time spent is greater than 50% in coordination of care (as documented) at patient's floor/unit and/or counseling patient: Coding Level of Care Code 39201 INT INP/OBS CARE 2/55MIN Diagnoses Back pain M54.9
[2024-10-19] MEDS ORDERED: MoRPHine SULFATE 4 MG/ML 1 ML CARP\\VIAL IV PRN (01:38)
[2024-10-19] MEDS ORDERED: ONDANSETRON INJ 2 MG/ML 2 ML VIAL IV PRN (01:38)
[2024-10-19] MEDS ORDERED: POLYETHYLENE (MIRALAX) 17 GM PACK PO PRN (01:38)
[2024-10-19] MEDS: MoRPHine SULFATE 2 MG/ML CARP IV PRN (02:55)
[2024-10-19 06:45] LABS: Hematocrit (blood only) 41.5 % (42.0-52.0); Hemoglobin 14.2 g/dl (14.0-18.0); Mean Corpuscular Hemoglobin 30.4 pg (25.0-34.0); Mean Corpuscular Hgb Conc 34.2 g/dL (32.0-36.0); Mean Corpuscular Volume 88.9 fL (80.0-100.0); Mean Platelet Volume 10.5 fL (9.4-12.4); Platelet Count 206 K/uL (130-400); RDW Standard Deviation 42.3 fL (36.4-46.3); Red Blood Count 4.67 M/uL (4.70-6.10); White Blood Count 10.45 K/ul (4.8-10.8)
[2024-10-19 07:18] LABS: BUN Creatinine Ratio 27.3 (10-20); Calcium 8.9 mg/dl (8.6-10.3); Creatinine Clr Calc Pharmacy 103.5 ml/min
[2024-10-19] MEDS ORDERED: methylPREDNISolone 10 mg/mL (For Ped Dose < 7mg) IV SCH (08:00)
--- NOTE | 2024-10-19 08:28 | CT Scan Report ---
Clinical History: Follow-up hemorrhage Technique: Axial computed tomography images were obtained of the brain from the vertex to the skull base without intravenous contrast. Findings: There has been near complete resolution of the previously seen left subdural hematoma. A small amount of subdural blood remains anterior to the left frontal lobe, measuring up to 4 mm in thickness. The right subdural hematoma has markedly decreased in size, now measuring up to 9 mm in thickness and of mixed attenuation, previously 18 mm. There is a suspected small amount of subdural blood along the tentorium. There is a suspected small amount of subarachnoid hemorrhage involving the right parietal and right occipital lobes, new or more apparent. There is a suspected new small amount of intraventricular hemorrhage in the posterior horns of the lateral ventricles bilaterally. There has been interval decrease in right and left subfalcine herniation, now measuring up to 4 mm. There is no hydrocephalus. No obvious mass lesion is seen on this noncontrast examination. The visualized portions of the orbits and paranasal sinuses appear unremarkable. The mastoid air cells appear clear Impression: 1. Near complete resolution of the previously seen left subdural hematoma 2. Interval decrease in size and attenuation of the previously seen right subdural hematoma 3. Small amount of subarachnoid hemorrhage involving the right parietal and right occipital lobes, new or more apparent 4. Small amount of intraventricular hemorrhage, which appears to be new 5. Interval decrease in subfalcine herniation ACT 112: Positive. There are findings on this exam that require communication between the performing entity and the patient following Patient Test Result Information Act ([place] ACT 112) guidelines. Electronically signed by Greg Hill 10-19-2024 08:28 AM
[2024-10-19] MEDS: methylPREDNISolone 60 MG in SYRINGE 0 ML IV SCH (09:09)
--- NOTE | 2024-10-19 11:36 | Hospitalist Progress Note ---
Date of Service October 19, 2024 Assessment & Plan (1) Low back pain: Plan: Supportive care. Known chronic T11 and L1 compression fractures. Pain control measures. Parenteral steroid therapy for suspected associated lumbar stenosis with radiculopathy. (2) Bilateral subdural hematomas: Plan: Recently drained. Head CT scan #2 done today, October 19, reveals evidence of a small amount of intraventricular hemorrhage and subarachnoid hemorrhage. The patient is currently asymptomatic. Will relook at head CT scan again tomorrow, October 20. Avoid subcutaneous heparin or Lovenox. No systemic anticoagulation, aspirin, nonsteroidal anti-inflammatory medication Plan To be determined Admission and Anticipated Discharge Date Admission Date: October 19, 2024 Subjective Alert and oriented. No distress. His son is at the bedside. His back pain appears to be due to known chronic T11 and L1 compression fractures. No recent trauma. Parenteral steroid therapy has been started. Head CT scan #2 done today, October 19, reveals a small amount of intraventricular hemorrhage and small amount of subarachnoid hemorrhage. This warrants further evaluation with another head CT scan tomorrow, October 20. The patient is asymptomatic and no apparent indication for transfer to tertiary care center at this time. Review of Systems 2 Review of Systems: Constitutionalno fever or chills ENTno blurred vision, no double vision, no epistaxis, no sore throat Respiratoryno cough, no wheezing, no shortness of breath Cardiacno palpitations, no chest pain, no syncope Lanny nausea, vomiting, diarrhea, melena, hematochezia. No rectal sphincter incontinence GUno urinary retention, no urinary incontinence, no dysuria, no hematuria Musculoskeletallumbar pain with ambulatory dysfunction. No muscle tenderness Skinno bruising, no rashes, no pruritus Neurono isolated weakness, no paresthesia, no weakness Psychno depression, no anxiety Physical Exam 2 Physical Exam: General-alert and oriented x3, no fever, no chills HEENT-head atraumatic and normocephalic, pupils equal and reactive to light, extraocular muscles intact Neck-no lymphadenopathy or thyromegaly, trachea midline Chest-clear to auscultation. No rales, wheezing or rhonchi Cardiac-regular rate and rhythm, normal S1 and S2 Abdomen-normal bowel sounds, no hepatosplenomegaly Extremities-no cyanosis, clubbing, or edema Neuro-cranial nerves II through XII intact, motor and sensory function within normal limits, strength symmetrical, no focal deficits Psych-normal affect, normal mood Results & Data Results & Data Vital Signs (Past 12 Hours) Vital Signs Temp Pulse Pulse Resp BP BP Pulse Ox 10/19/24 11:09 36.7 C 76 17 149/81 H 95 10/19/24 10:31 10/19/24 08:08 36.6 C 88 17 136/78 95 10/19/24 02:14 10/19/24 02:14 36.9 C 81 16 164/79 H 98 10/19/24 01:38 36.9 C 84 16 164/79 H 98 10/19/24 01:22 10/19/24 01:00 108/81 10/19/24 01:00 84 21 96 10/19/24 00:30 144/81 H 10/19/24 00:27 81 23 96 O2 Del Method 10/19/24 11:09 Room Air 10/19/24 10:31 Room Air 10/19/24 08:08 Room Air 10/19/24 02:14 Room Air 10/19/24 02:14 Room Air 10/19/24 01:38 Room Air 10/19/24 01:22 Room Air 10/19/24 01:00 10/19/24 01:00 Room Air 10/19/24 00:30 10/19/24 00:27 Room Air Laboratory Results 10/19/24 05:53 10/19/24 05:53 PG Care Time/CCT Total # of Minutes Spent Total Time Spent with Patient: Total time spent is greater than 50% in coordination of care (as documented) at patient's floor/unit and/or counseling patient: Coding Level of Care Code 39932 SUB INP/OBS CARE 3/50MIN Diagnoses Low back pain M54.50 Bilateral subdural hematomas S06.5XAA
[2024-10-19] MEDS: ACETAMINOPHEN 325 MG TAB PO PRN (21:36)
[2024-10-20 06:46] LABS: BUN Creatinine Ratio 32.8 (10-20); Calcium 8.8 mg/dl (8.6-10.3); Creatinine Clr Calc Pharmacy 118.3 ml/min; Potassium 3.7 mmol/L (3.5-5.1)
--- NOTE | 2024-10-20 08:19 | CT Scan Report ---
Clinical History: Follow-up hemorrhage. Technique: Axial computed tomography images were obtained of the brain from the vertex to the skull base without intravenous contrast. Comparison is made to the prior CT dated 10/19/2024 Findings: Again seen is a small left frontal subdural hematoma, measuring approximately 4 mm in thickness. Again seen is a right frontoparietal subdural hematoma of mixed attenuation, measuring up to 9 mm. There is been slight decrease in subarachnoid hemorrhage involving the right parietal and right occipital lobes. Again seen is a minimal amount of intraventricular hemorrhage involving the posterior horns of the lateral ventricles There is no sign of new intracranial hemorrhage. There is normal sauceda-white matter differentiation with no sign of acute or old infarction. Again seen is up to 4 mm of [id number] midline shift. There is no hydrocephalus. No obvious mass lesion is seen on this noncontrast examination. The visualized portions of the orbits and paranasal sinuses appear unremarkable. The mastoid air cells appear clear Impression: 1. Slight decrease in subarachnoid hemorrhage involving the right parietal and right occipital lobes 2. Unchanged small subdural hematomas 3. Unchanged minimal amount of intraventricular hemorrhage 4. Unchanged mild subfalcine herniation ACT 112: Positive. There are findings on this exam that require communication between the performing entity and the patient following Patient Test Result Information Act ([place] ACT 112) guidelines. Electronically signed by Greg Hill 10-20-2024 08:19 AM
[2024-10-20] MEDS ORDERED: DEXTROSE 50% 50 ML SYRINGE IV PRN (08:39)
[2024-10-20] MEDS ORDERED: CARBOHYDRATES FOR HYPOGLYCEMIA PO PRN (08:39)
[2024-10-20] MEDS ORDERED: GLUCOSE 10 TAB/TUBE PO PRN (08:39)
[2024-10-20] MEDS ORDERED: GLUCOSE 40% GEL 15 GM TUBE PO PRN (08:39)
[2024-10-20] MEDS ORDERED: GLUCAGON FOR INJ 1 MG VIAL SQ PRN (08:39)
[2024-10-20] MEDS ORDERED: methylPREDNISolone 10 mg/mL (For Ped Dose < 7mg) IV SCH (08:45)
[2024-10-20] MEDS: methylPREDNISolone 40 MG in SYRINGE 0 ML IV SCH (10:06)
--- NOTE | 2024-10-20 10:36 | Hospitalist Progress Note ---
Date of Service October 20, 2024 Assessment & Plan (1) Low back pain: Plan: Improved with parenteral steroid therapy. Supportive care. Known chronic T11 and L1 compression fractures. Pain control measures. Will request orthopedic spine consultation tomorrow, October 21. OT and PT assessments pending (2) Bilateral subdural hematomas: Plan: Recently drained. Head CT scan #2 done on October 19, reveals evidence of a small amount of intraventricular hemorrhage and subarachnoid hemorrhage. Head CT scan #3 done today, October 20, is stable. The patient is currently asymptomatic. Avoid subcutaneous heparin or Lovenox. No systemic anticoagulation, aspirin, nonsteroidal anti-inflammatory medication (3) Hyperglycemia: Plan: Parenteral steroid induced. He is not diabetic. Sliding scale coverage ordered temporarily. Plan To be determined by OT and PT assessments Admission and Anticipated Discharge Date Admission Date: October 19, 2024 Subjective Alert and oriented. Definite clinical improvement. Parenteral steroid therapy has been titrated down. This has caused some hyperglycemia and sliding scale insulin instituted which should be temporary. OT and PT assessments are pending. Orthopedic spine consultation can be requested on October 21 Review of Systems 2 Review of Systems: Constitutionalno fever or chills ENTno blurred vision, no double vision, no epistaxis, no sore throat Respiratoryno cough, no wheezing, no shortness of breath Cardiacno palpitations, no chest pain, no syncope Lanny nausea, vomiting, diarrhea, melena, hematochezia. No rectal sphincter incontinence GUno urinary retention, no urinary incontinence, no dysuria, no hematuria Musculoskeletallumbar pain with ambulatory dysfunction. No muscle tenderness Skinno bruising, no rashes, no pruritus Neurono isolated weakness, no paresthesia, no weakness Psychno depression, no anxiety Physical Exam 2 Physical Exam: General-alert and oriented x3, no fever, no chills HEENT-head atraumatic and normocephalic, pupils equal and reactive to light, extraocular muscles intact Neck-no lymphadenopathy or thyromegaly, trachea midline Chest-clear to auscultation. No rales, wheezing or rhonchi Cardiac-regular rate and rhythm, normal S1 and S2 Abdomen-normal bowel sounds, no hepatosplenomegaly Extremities-no cyanosis, clubbing, or edema Neuro-cranial nerves II through XII intact, motor and sensory function within normal limits, strength symmetrical, no focal deficits Psych-normal affect, normal mood Results & Data Results & Data Vital Signs (Past 12 Hours) Vital Signs Temp Pulse Pulse Resp BP Pulse Ox O2 Del Method 10/20/24 10:26 Room Air 10/20/24 10:21 90 10/20/24 07:51 36.7 C 67 17 122/68 93 Room Air 10/20/24 05:50 36.7 C 66 14 138/66 95 Room Air 10/20/24 00:36 64 10/19/24 23:31 36.8 C 63 18 131/73 95 Room Air Laboratory Results 10/19/24 05:53 10/20/24 05:50 PG Care Time/CCT Total # of Minutes Spent Total Time Spent with Patient: Total time spent is greater than 50% in coordination of care (as documented) at patient's floor/unit and/or counseling patient: Coding Level of Care Code 04479 SUB INP/OBS CARE 3/50MIN Diagnoses Low back pain M54.50 Bilateral subdural hematomas S06.5XAA Hyperglycemia R73.9
[2024-10-20] MEDS: INSULIN ASPART PER UNIT CHARGE SC SCH (13:17)
[2024-10-20] MEDS: MELATONIN 3 MG TAB PO PRN (21:24)
[2024-10-21 07:30] LABS: BUN Creatinine Ratio 34.5 (10-20); Calcium 8.7 mg/dl (8.6-10.3); Creatinine Clr Calc Pharmacy 111.5 ml/min; Potassium 3.9 mmol/L (3.5-5.1)
[2024-10-21 08:26] LABS: Hemoglobin 14.3 g/dl (14.0-18.0); Mean Corpuscular Hemoglobin 29.8 pg (25.0-34.0); Mean Corpuscular Volume 87.5 fL (80.0-100.0); Mean Platelet Volume 10.1 fL (9.4-12.4); Platelet Count 213 K/uL (130-400); RDW Standard Deviation 41.1 fL (36.4-46.3); White Blood Count 18.37 K/ul (4.8-10.8)
[2024-10-21 08:44] LABS: BUN Creatinine Ratio 33.3 (10-20); Calcium 8.6 mg/dl (8.6-10.3); Creatinine Clr Calc Pharmacy 107.8 ml/min; Potassium 4.1 mmol/L (3.5-5.1)
--- NOTE | 2024-10-21 09:24 | Hospitalist Progress Note ---
Date of Service October 21, 2024 Assessment & Plan (1) Low back pain: (2) Bilateral subdural hematomas: (3) Hyperglycemia: (4) Compression fracture of thoracic vertebra: (5) Compression fracture of lumbar vertebra: (6) H/O traumatic subdural hematoma: (7) Urinary retention: Plan 69-year-old male with past medical history of recent subdural hematoma that required evacuation on 10/11/2024 presents with worsening back pain over the past 2 weeks associated with falls. #Acute back pain #Constipation, likely related to opiates Patient with known T11/L1 compression fracture Lumbar spine CT mild chronic appearing vertebral body compression fracture at L1, no other lumbar fracture or subluxation seen, lumbar degenerative findings with moderate severe central canal narrowing at L4-L5 Stop IV steroids Avoid NSAIDs in light of recent subdural hematomas Orthopedic spine surgery consult PT/OT had recommended rehab on discharge Analgesia: Tylenol 1000 mg p.o. 3 times daily, oxycodone 5 mg p.o. every 4 hours as needed for severe pain, morphine IV as needed for breakthrough pain Start bowel regimen: MiraLAX plus senna Await orthopedic recommendations #History of recent bilateral subdural hematomas Status post recent drainage Recent head CT from 10/20/2024 shows slight decrease in subarachnoid hemorrhage involving the right parietal and right occipital lobes. Unchanged small subdural hematomas. Unchanged minimal amount of intraventricular hemorrhage. Unchanged mild subfalcine herniation. Avoid NSAIDs/antiplatelets/anticoagulation #Episode of PAT versus PVC EKG checked and shows sinus rhythm Check 2D echo Keep K greater than 4 and magnesium greater than 2 #Hyperglycemia A1c is 5.6 Likely steroid-induced Monitor glycemic control #Urinary retention Present on admission Likely from pain meds/constipation Patient on bowel regiment Trial without catheter in the next 24 hours once patient is having regular bowel movements CODE STATUS: Full code DVT prophylaxis: Bilateral SCDs, avoid chemical prophylaxis due to recent subdural hematomas Disposition: Acute rehab versus SNF likely in the next 48 to 72 hours based on orthopedic recommendations, clinical improvement Care plan discussed with patient, nursing staff and daughter updated at bedside Admission and Anticipated Discharge Date Admission Date: October 19, 2024 Subjective Patient seen and examined Daughter at bedside Patient smiling, denies any chest pain or shortness of breath, denies any palpitations, headache, dizziness, lightheadedness, nausea, vomiting or abdominal pain. 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 He lives with his daughter and son-in-law locally Physical Exam Physical Exam: General: No acute distress Psych: Awake and alert, oriented x 3 HEENT: Anicteric sclera, moist oral mucosa CVS: Regular rate and rhythm Lungs: Bilateral air entry, no wheezing noted Abdomen: Soft, nontender, no rebound, no guarding Ext: No lower extremity edema, no calf tenderness Back: LS-spine tenderness noted to palpation : Indwelling Vo catheter noted Neuro: No focal motor deficits noted Results & Data Results & Data Vital Signs (Past 12 Hours) Vital Signs Temp Pulse Resp BP BP Pulse Ox O2 Del Method 10/21/24 07:49 36.7 C 74 18 140/85 92 Room Air 10/21/24 02:45 36.8 C 82 18 139/89 95 Room Air 10/20/24 22:42 36.7 C 78 18 141/73 H 95 Room Air Laboratory Results Laboratory Results - last 24 hr 10/20/24 10/20/24 10/20/24 11:25 16:13 20:33 WBC RBC Hgb Hct MCV MCH MCHC RDW Std Deviation RDW Coeff of Shaheed Plt Count MPV Sodium Potassium Chloride Carbon Dioxide Anion Gap BUN Creatinine Est Cr Clr Drug Dosing eGFR BUN/Creatinine Ratio Glucose POC Glucose 166 H 186 H 151 H Estimat Average Glucose Hemoglobin A1c Calcium Magnesium Vitamin B12 10/21/24 10/21/24 10/21/24 06:38 07:17 08:07 WBC 18.37 H RBC 4.80 Hgb 14.3 Hct 42.0 MCV 87.5 MCH 29.8 MCHC 34.0 RDW Std Deviation 41.1 RDW Coeff of Shaheed 13.0 Plt Count 213 MPV 10.1 Sodium 137 137 Potassium 3.9 4.1 Chloride 103 104 Carbon Dioxide 27 27 Anion Gap 7 6 BUN 20 20 Creatinine 0.58 L 0.60 Est Cr Clr Drug Dosing 111.5 107.8 eGFR 106.89 105.80 BUN/Creatinine Ratio 34.5 H 33.3 H Glucose 185 H 178 H POC Glucose 165 H Estimat Average Glucose Pending Hemoglobin A1c Pending Calcium 8.7 8.6 Magnesium 2.0 Vitamin B12 938 H PG Care Time/CCT Total # of Minutes Spent Total Time Spent with Patient: Total time spent is greater than 50% in coordination of care (as documented) at patient's floor/unit and/or counseling patient: Coding Level of Care Code 14084 SUB INP/OBS CARE 3/50MIN Diagnoses Low back pain M54.50 Bilateral subdural hematomas S06.5XAA Hyperglycemia R73.9 Compression fracture of thoracic vertebra S22.000A Compression fracture of lumbar vertebra S32.000A H/O traumatic subdural hematoma Z87.828 Urinary retention R33.9
[2024-10-21] MEDS: POLYETHYLENE (MIRALAX) 17 GM PACK PO SCH (10:31)
[2024-10-21] MEDS: SENNA 8.6 MG TAB PO SCH (10:31)
[2024-10-21] MEDS: MAGNESIUM HYDROXIDE SUSP 30 ML UDC PO ONE (10:31)
[2024-10-21] MEDS: bisacodyL 10 MG SUPP PR STA (10:32)
[2024-10-21] MEDS: MoRPHine SULFATE 2 MG/ML CARP IV PRN (10:33)
[2024-10-21 11:10] LABS: Estimated Average Glucose 114 mg/dl; Hemoglobin A1C 5.6 % (4.5-5.6)
--- NOTE | 2024-10-21 11:16 | Orthopedic Consultation ---
Date of Service October 21, 2024 Assessment & Plan (1) Compression fracture of lumbar vertebra: * Case/imaging discussed with Dr Barrow * Recommend conservative management of thoracic and lumbar compression fractures * TLSO brace ordered * Will obtain MRI T-spine for completion * Daily treatment: Physical Therapy/ Occupational Therapy per protocol * Weight bearing status: WBAT b/l LE * Pain control * Remainder care per primary team * Stable for discharge from ortho standpoint, further planning per primary team * Will follow peripherally, please contact with further concerns. (2) Compression fracture of thoracic vertebra: History of Present Illness Reason for Consultation: .low back pain Requesting Physician: . Attending Physician: Melquiades Miller MD . .Patient is a 69 y/o male with low back pain. PMH including hyperglycemia. Presents to ED with low back pain. Patient is in town visiting family and has henry d several falls over the past few weeks, one in particular resulting in hospitalization at [facility] with subdural hematoma s/p drain and was ultimately discharged back home in stable condition. Returns to ED again over the weekend due to persistent low back pain and difficulty ambulating without assistance. ED workup including MRI lumbar spine demonstrating T11 and L1 compression fractures, L4-5 disc bulge with spinal stenosis. Spine consulted for management recommendations. At time of exam patient sitting comfortably in chair, no acute distress. Reports ongoing low back pain for the past several weeks that started prior to recent hospitalization but has been worse since he had to lay supine for prolonged time. Reports some burning sensation in his lower legs and feet. Denies outright loss of bowel or bladder function, however in discussion with his daughter he does seem to alternate between periods of constipation and urgency. Currently has a Vo placed, however again patient denies loss of bladder control but states this is more due to him having difficulty getting around. Denies tingling or numbness of bilateral lower extremity. Currently no brace applied. Allergies Allergy/AdvReac Type Severity Reaction Status Date / Time No Known Allergies Allergy Verified 10/18/24 16:16 Home Medications Medication Instructions Recorded Confirmed Type multivit,calcium,min-folic acid 1 tab PO DAILY 10/18/24 10/18/24 History 240 mcg-D3 25 mcg-lycop 300 mcg tablet (One A Day Men Complete) Past Med/Surg History Problem List (Updated 10/21/24 @ 14:56 by Kian Barrow MD) Urinary retention H/O traumatic subdural hematoma Compression fracture of thoracic vertebra Compression fracture of lumbar vertebra Hyperglycemia Low back pain Back pain (Acute) Social History Smoking Status: Never smoker Second Hand Exposure: No; Do You Dip or Chew Tobacco: No; Hx Alcohol Use: No Hx Substance Use: No Preferred Language: Icelandic Communication Ability: Effective Machine Brush Maker Required: No Beliefs That Will Affect Care: Druze and Cultural Current Living Situation: Family Current Living Situation Comment: lives with daughter and son in law Feels Safe at Home: Yes Assistive Devices: None Review of Systems All systems reviewed & are unremarkable except as noted in HPI & below. Physical Exam . * General: Alert and oriented, no acute distress * Constitutional: well-developed, well-nourished. * Respiratory: Normal respiratory effort, no distress * Gastrointestinal: No tenderness to palpation, no rigidity or guarding. * Skin: No rash or lesion. * Neurologic: Grossly normal * Musculoskeletal: Lumbar region with no obvious deformity or overlying skin changes. Otherwise no obvious deformity or overlying skin changes to bilateral lower extremity. Midline lumbar TTP, minimal tenderness of the bilateral gluteal regions. Otherwise no specific tenderness of either lower extremity. Strength testing bilaterally, hip flexion 5/5, hip abduction 5/5, hip adduction 5/5/5, knee extension 5/5, knee flexion 5/5, ankle dorsiflexion 5/5. Sensation intact bilateral anterior thigh, medial and lateral lower leg, dorsal foot. Brisk cap refill. Results & Data Results & Data Laboratory Results . Diagnostic Findings . 10/18 Lumbar MRI IMPRESSION: 1. Suspect subarachnoid hemorrhage accounting for the signal alteration in the CSF at the thoracolumbar junction. 2. No definite epidural hematoma. 3. Severe central spinal stenosis L4-5, degenerative. 4. Mild residual edema involving the T11 compression fracture, probably reflects ongoing healing. PG Care Time/CCT Total # of Minutes Spent Total Time Spent with Patient: Total time spent is greater than 50% in coordination of care (as documented) at patient's floor/unit and/or counseling patient: [place] [address] IN/OBS CONSULT LVL 4,60M Patient Type New Diagnoses Compression fracture of L1 vertebra, initial encounter S32.010A Encounter type: initial encounter Lumbar vertebra fracture level: L1 Compression fracture of T11 vertebra, initial encounter S22.080A Encounter type: initial encounter Thoracic vertebra fracture level: T11 (1) Compression fracture of lumbar vertebra Encounter type: initial encounter Lumbar vertebra fracture level: L1 Qualified Code(s): S32.010A - Wedge compression fracture of first lumbar vertebra, initial encounter for closed fracture (2) Compression fracture of thoracic vertebra Encounter type: initial encounter Thoracic vertebra fracture level: T11 Qualified Code(s): S22.080A - Wedge compression fracture of T11-T12 vertebra, initial encounter for closed fracture
[2024-10-21] MEDS: ACETAMINOPHEN 500 MG TAB PO SCH (14:30)
--- NOTE | 2024-10-21 17:48 | XCELERA ---
[id number]
[2024-10-21] MEDS ORDERED: MoRPHine SULFATE 2 MG/ML CARP IV PRN (18:19)
[2024-10-21] MEDS: TAMSULOSIN HCL 0.4 MG CAP PO ONE (18:25)
[2024-10-21] MEDS: MAGNESIUM CITRATE 296 ML/BTL PO STA (18:37)
[2024-10-21] MEDS: LOSARTAN POTASSIUM 25 MG TAB PO SCH (20:35)
--- NOTE | 2024-10-22 05:49 | Electrocardiogram Report ---
Test Reason : Blood Pressure : */* mmHG Vent. Rate : 73 BPM Atrial Rate : 73 BPM P-R Int : 154 ms QRS Dur : 124 ms QT Int : 410 ms P-R-T Axes : 27 41 -14 degrees QTcB Int : 451 ms Normal sinus rhythm Right bundle branch block Abnormal ECG No previous ECGs available Confirmed by Abiodun Wilson ([id number]) on 10/22/2024 5:49:39 AM Referred By: REFERRED SELF Confirmed By: Abiodun Wilson
[2024-10-22] MEDS: oxyCODONE HCL IR 5 MG TAB (IMMEDIATE RELEASE) PO PRN (05:56)
[2024-10-22 06:51] LABS: Basophils # (auto) 0.02 K/uL (0.00-0.20); Basophils % (auto) 0.1 %; Eosinophils # (auto) 0.01 K/uL (0.00-0.50); Eosinophils % (auto) 0.1 %; Hematocrit (blood only) 41.5 % (42.0-52.0); Immature Granulocytes # (auto) 0.09 K/uL (0.01-0.20); Immature Granulocytes % (auto) 0.6 %; Lymphocytes # (auto) 1.02 K/uL (1.20-3.40); Lymphocytes % (auto) 6.5 %; Mean Corpuscular Hemoglobin 29.9 pg (25.0-34.0); Mean Corpuscular Hgb Conc 33.7 g/dL (32.0-36.0); Mean Corpuscular Volume 88.7 fL (80.0-100.0); Mean Platelet Volume 10.2 fL (9.4-12.4); Monocytes # (auto) 1.31 K/uL (0.11-0.59); Monocytes % (auto) 8.3 %; Neutrophils # (auto) 13.27 K/uL (1.40-6.50); Neutrophils % (auto) 84.4 %; Platelet Count 191 K/uL (130-400); Red Blood Count 4.68 M/uL (4.70-6.10); White Blood Count 15.72 K/ul (4.8-10.8)
[2024-10-22 07:10] LABS: BUN Creatinine Ratio 37.7 (10-20); Calcium 8.3 mg/dl (8.6-10.3); Creatinine Clr Calc Pharmacy 106.4 ml/min; Magnesium 2.2 mg/dl (1.7-2.4); Potassium 4.1 mmol/L (3.5-5.1)
[2024-10-22] MEDS: TAMSULOSIN HCL 0.4 MG CAP PO SCH (09:13)
--- NOTE | 2024-10-22 11:06 | Orthopedic Progress Note ---
Date of Service October 22, 2024 Assessment & Plan (1) Compression fracture of lumbar vertebra: * Case/imaging discussed with Dr Barrow * Recommend conservative management of thoracic and lumbar compression fractures * TLSO brace ordered * Will obtain MRI T-spine for completion * Daily treatment: Physical Therapy/ Occupational Therapy per protocol * Weight bearing status: WBAT b/l LE * Pain control * Remainder care per primary team * Stable for discharge from ortho standpoint, further planning per primary team * Will follow peripherally, please contact with further concerns. (2) Compression fracture of thoracic vertebra: Subjective .Active Problems: T11 compression fracture 69 y/o male with T11 compression fracture. Doing well overall, pain managed and improved function. Ambulating with PT/OT at time of exam. Denies fever/chills, chest pain/SOB, nausea/vomiting. Otherwise no complaints. Review of Systems All systems reviewed & are unremarkable except as noted in HPI & below. Physical Exam * General: Alert and oriented, no acute distress * Constitutional: well-developed, well-nourished. * Respiratory: Normal respiratory effort, no distress * Gastrointestinal: No tenderness to palpation, no rigidity or guarding. * Skin: No rash or lesion. * Neurologic: Grossly normal * Musculoskeletal: Lumbar region with no obvious deformity or overlying skin changes. Otherwise no obvious deformity or overlying skin changes to bilateral lower extremity. Midline lumbar TTP, minimal tenderness of the bilateral gluteal regions. Otherwise no specific tenderness of either lower extremity. Strength testing bilaterally, hip flexion 5/5, hip abduction 5/5, hip adduction 5/5, knee extension 5/5, knee flexion 5/5, ankle dorsiflexion 5/5. Sensation intact bilateral anterior thigh, medial and lateral lower leg, dorsal foot. Brisk cap refill. Results & Data Results & Data Laboratory Results . Diagnostic Findings . PG Care Time/CCT Total # of Minutes Spent Total Time Spent with Patient: Total time spent is greater than 50% in coordination of care (as documented) at patient's floor/unit and/or counseling patient: Coding [place] [address] SUB INP/OBS CARE 1/25MIN Patient Type Established History Problem Focused Exam Problem Focused Medical Decision Making Straight Forward Diagnoses Compression fracture of L1 vertebra, initial encounter S32.010A Encounter type: initial encounter Lumbar vertebra fracture level: L1 Compression fracture of T11 vertebra, initial encounter S22.080A Encounter type: initial encounter Thoracic vertebra fracture level: T11 (1) Compression fracture of lumbar vertebra Encounter type: initial encounter Lumbar vertebra fracture level: L1 Qualified Code(s): S32.010A - Wedge compression fracture of first lumbar vertebra, initial encounter for closed fracture (2) Compression fracture of thoracic vertebra Encounter type: initial encounter Thoracic vertebra fracture level: T11 Qualified Code(s): S22.080A - Wedge compression fracture of T11-T12 vertebra, initial encounter for closed fracture
--- NOTE | 2024-10-22 11:31 | Hospitalist Progress Note ---
Date of Service October 22, 2024 Assessment & Plan (1) Low back pain: (2) Bilateral subdural hematomas: (3) Hyperglycemia: (4) Compression fracture of thoracic vertebra: (5) Compression fracture of lumbar vertebra: (6) H/O traumatic subdural hematoma: (7) Urinary retention: (8) Constipation: Plan 69-year-old male with past medical history of recent subdural hematoma that required evacuation on 10/11/2024 presents with worsening back pain over the past 2 weeks associated with falls. #Acute back pain #Constipation, likely related to opiates Patient with known T11/L1 compression fracture Lumbar spine CT mild chronic appearing vertebral body compression fracture at L1, no other lumbar fracture or subluxation seen, lumbar degenerative findings with moderate severe central canal narrowing at L4-L5 White count is improving after steroids have been stopped: Continue to monitor Avoid NSAIDs in light of recent subdural hematomas PT/OT had recommended rehab on discharge Analgesia: Tylenol 1000 mg p.o. 3 times daily, oxycodone 5 mg p.o. every 4 hours as needed for severe pain, morphine IV as needed for breakthrough pain Continue MiraLAX plus senna twice daily, status post mag citrate. Check abdominal x-ray: If no perforation or obstruction, start Dulcolax suppository and enema today Spine orthopedic surgery saw the patient, they have ordered a TLSO brace, recommended conservative management of thoracic and lumbar compression fractures, they have also ordered MRI of T-spine for completion, he will need follow-up with Ortho spine surgery outpatient and from triage standpoint patient can be discharge #History of recent bilateral subdural hematomas Status post recent drainage Recent head CT from 10/20/2024 shows slight decrease in subarachnoid hemorrhage involving the right parietal and right occipital lobes. Unchanged small subdural hematomas. Unchanged minimal amount of intraventricular hemorrhage. Unchanged mild subfalcine herniation. Avoid NSAIDs/antiplatelets/anticoagulation #Episode of PAT versus PVC EKG checked and shows sinus rhythm Telemetry shows sinus rhythm with intermittent sinus tachycardia 2D echo from 10/21/2024 shows EF of 65 to 70%, no regional wall motion abnorm alities, mild to moderate left ventricular hypertrophy, type I diastolic dysfunction noted Stop telemetry monitoring #Hyperglycemia A1c is 5.6 Likely steroid-induced, steroids stopped 10/21/2024 Monitor glycemic control #Urinary retention Present on admission Likely from pain meds/constipation Patient on bowel regiment Continue Flomax Trial without catheter in the next 24 hours once patient is having regular bowel movements CODE STATUS: Full code DVT prophylaxis: Bilateral SCDs, avoid chemical prophylaxis due to recent subdural hematomas Disposition: Acute rehab versus SNF likely in the next 48 to 72 hours based on MRI, clinical improvement, bowel movement Transfer to Med/Surg Care plan discussed with patient, nursing staff and daughter updated at bedside Admission and Anticipated Discharge Date Admission Date: October 19, 2024 Subjective Patient seen and examined Daughter at bedside Patient sitting in the chair Patient still has not had a bowel movement in spite of mag citrate, MiraLAX, senna He is agreeable to Dulcolax suppository and enema Denies any chest pain or shortness of breath He does not want telemetry monitoring anymore: He has been removing it intermittently per nursing staff He reports pain control with analgesia but pain worse on movement Physical Exam Physical Exam: General: No acute distress Psych: Awake and alert, oriented x 3 HEENT: Anicteric sclera, moist oral mucosa CVS: Regular rate and rhythm Lungs: Bilateral air entry, no wheezing noted Abdomen: Soft, nontender, no rebound, no guarding Ext: No lower extremity edema, no calf tenderness Back: LS-spine tenderness noted to palpation : Indwelling Vo catheter noted Neuro: No focal motor deficits noted Results & Data Results & Data Vital Signs (Past 12 Hours) Vital Signs Temp Pulse Pulse Resp BP BP Pulse Ox 10/22/24 11:10 36.5 C 16 107/66 96 10/22/24 07:40 37.0 C 102 H 18 117/74 93 10/22/24 07:35 107 H 10/22/24 03:28 36.8 C 102 H 19 121/74 94 10/22/24 00:00 80 O2 Del Method 10/22/24 11:10 Room Air 10/22/24 07:40 Room Air 10/22/24 07:35 10/22/24 03:28 Room Air 10/22/24 00:00 Laboratory Results 10/22/24 10/22/24 10/21/24 07:12 06:30 20:41 WBC 15.72 H RBC 4.68 L Hgb 14.0 Hct 41.5 L MCV 88.7 MCH 29.9 MCHC 33.7 RDW Std Deviation 42.0 RDW Coeff of Shaheed 13.0 Plt Count 191 MPV 10.2 Immature Gran % (Auto) 0.6 Neut % (Auto) 84.4 Lymph % (Auto) 6.5 [place] % (Auto) 8.3 Eos % (Auto) 0.1 Baso % (Auto) 0.1 Neut # (Auto) 13.27 H Lymph # (Auto) 1.02 L [place] # (Auto) 1.31 H Eos # (Auto) 0.01 Baso # (Auto) 0.02 Immature Gran # (Auto) 0.09 Sodium 137 Potassium 4.1 Chloride 102 Carbon Dioxide 28 Anion Gap 7 BUN 23 Creatinine 0.61 Est Cr Clr Drug Dosing 106.4 eGFR 105.28 BUN/Creatinine Ratio 37.7 H Glucose 158 H POC Glucose 158 H 120 H Calcium 8.3 L Magnesium 2.2 10/21/24 10/21/24 16:17 11:46 WBC RBC Hgb Hct MCV MCH MCHC RDW Std Deviation RDW Coeff of Shaheed Plt Count MPV Immature Gran % (Auto) Neut % (Auto) Lymph % (Auto) [place] % (Auto) Eos % (Auto) Baso % (Auto) Neut # (Auto) Lymph # (Auto) [place] # (Auto) Eos # (Auto) Baso # (Auto) Immature Gran # (Auto) Sodium Potassium Chloride Carbon Dioxide Anion Gap BUN Creatinine Est Cr Clr Drug Dosing eGFR BUN/Creatinine Ratio Glucose POC Glucose 139 H 186 H Calcium Magnesium PG Care Time/CCT Total # of Minutes Spent Total Time Spent with Patient: Total time spent is greater than 50% in coordination of care (as documented) at patient's floor/unit and/or counseling patient: Coding Level of Care Code 69491 SUB INP/OBS CARE 3/50MIN Diagnoses Low back pain M54.50 Bilateral subdural hematomas S06.5XAA Hyperglycemia R73.9 Compression fracture of T11 vertebra, initial encounter S22.080A Encounter type: initial encounter Thoracic vertebra fracture level: T11 Compression fracture of L1 vertebra, initial encounter S32.010A Encounter type: initial encounter Lumbar vertebra fracture level: L1 H/O traumatic subdural hematoma Z87.828 Urinary retention R33.9 Constipation K59.00 (4) Compression fracture of thoracic vertebra Encounter type: initial encounter Thoracic vertebra fracture level: T11 Qualified Code(s): S22.080A - Wedge compression fracture of T11-T12 vertebra, initial encounter for closed fracture (5) Compression fracture of lumbar vertebra Encounter type: initial encounter Lumbar vertebra fracture level: L1 Qualified Code(s): S32.010A - Wedge compression fracture of first lumbar vertebra, initial encounter for closed fracture
--- NOTE | 2024-10-22 13:30 | XRay Report ---
KUB HISTORY: distenstion ?constipation COMPARISON STUDY: None FINDINGS: There is a large amount of retained stool, especially at the right colon. No specific evide nce of bowel obstruction seen. No gross free air. IMPRESSION: Large amount of retained stool. ACT 112: Negative or not required by law. The above report was generated using voice recognition software. It may contain grammatical, syntax o r spelling errors. Electronically signed by: Cullen Ryder M.D. 10/22/2024 1:29 PM
[2024-10-22] MEDS: bisacodyL 10 MG SUPP PR STA (14:49)
[2024-10-22] MEDS: bisacodyL 5 MG TABEC PO ONE (14:49)
[2024-10-22] MEDS ORDERED: Nursing to Pharmacy Communication SCH (16:30)
[2024-10-22] MEDS: SOD PHOSPHATE/SOD BIPHOSPHATE ENEMA 132 ML BTL PR STA ×2 (16:43)
[2024-10-22] MEDS: MINERAL OIL ENEMA 133 ML BTL PR STA (18:17)
[2024-10-22] MEDS: POLYETHYLENE (MIRALAX) 17 GM PACK PO SCH (21:04)
[2024-10-23 06:01] LABS: Basophils # (auto) 0.01 K/uL (0.00-0.20); Basophils % (auto) 0.1 %; Eosinophils # (auto) 0.02 K/uL (0.00-0.50); Eosinophils % (auto) 0.1 %; Hematocrit (blood only) 44.7 % (42.0-52.0); Hemoglobin 14.8 g/dl (14.0-18.0); Immature Granulocytes % (auto) 0.7 %; Lymphocytes # (auto) 0.41 K/uL (1.20-3.40); Lymphocytes % (auto) 2.9 %; Mean Corpuscular Hemoglobin 29.7 pg (25.0-34.0); Mean Corpuscular Hgb Conc 33.1 g/dL (32.0-36.0); Mean Corpuscular Volume 89.8 fL (80.0-100.0); Mean Platelet Volume 9.9 fL (9.4-12.4); Monocytes # (auto) 0.88 K/uL (0.11-0.59); Monocytes % (auto) 6.3 %; Neutrophils # (auto) 12.52 K/uL (1.40-6.50); Neutrophils % (auto) 89.9 %; Platelet Count 177 K/uL (130-400); RDW Coefficient of Variation 12.9 % (11.5-14.5); RDW Standard Deviation 42.5 fL (36.4-46.3); Red Blood Count 4.98 M/uL (4.70-6.10); White Blood Count 13.94 K/ul (4.8-10.8)
[2024-10-23 06:24] LABS: Albumin Globulin Ratio 0.9 (0.9-2); BUN Creatinine Ratio 26.1 (10-20); Bilirubin,Total 1.1 mg/dl (0.2-1.0); Calcium 8.7 mg/dl (8.6-10.3); Creatinine Clr Calc Pharmacy 92.7 ml/min; Globulin 3.9 gm/dl (2.5-4.0); Magnesium 2.2 mg/dl (1.7-2.4); Potassium 5.3 mmol/L (3.5-5.1); Total Protein 7.4 gm/dl (6.0-8.3)
--- NOTE | 2024-10-23 10:34 | Orthopedic Progress Note ---
Date of Service October 23, 2024 Assessment & Plan (1) Compression fracture of lumbar vertebra: * Case/imaging discussed with Dr Barrow * Recommend conservative management of thoracic and lumbar compression fractures * TLSO brace fitted * Will obtain MRI T-spine for completion * Daily treatment: Physical Therapy/ Occupational Therapy per protocol * Weight bearing status: WBAT b/l LE * Pain control * Remainder care per primary team * Discussed MRI with patient, states he will proceed with imaging when called * Recommend removal of Vo catheter at earliest convenience to accurately assess urinary function * Will continue to follow (2) Compression fracture of thoracic vertebra: Subjective . .Active Problems: T11, L1 compression fractures 69 y/o male with T11 and L1 compression fracture. Doing well overall, pain managed and improved function. Pain only when sitting. Receiving treatment for ongoing constipation, patient states he was able to feel suppository administered yesterday, and reports having small bowel movements but not complete. Vo remains, per hospital medicine notes plan to remove once able to have bowel movement. Denies fever/chills, chest pain/SOB, nausea/vomiting. Otherwise no complaints. Review of Systems All systems reviewed & are unremarkable except as noted in HPI & below. Physical Exam * General: Alert and oriented, no acute distress * Constitutional: well-developed, well-nourished. * Respiratory: Normal respiratory effort, no distress * Gastrointestinal: No tenderness to palpation, no rigidity or guarding. * Skin: No rash or lesion. * Neurologic: Grossly normal * Musculoskeletal: Lumbar region with no obvious deformity or overlying skin changes. Otherwise no obvious deformity or overlying skin changes to bi lateral lower extremity. Midline lumbar TTP, minimal tenderness of the bilateral gluteal regions. Otherwise no specific tenderness of either lower extremity. Strength testing bilaterally, hip flexion 5/5, hip abduction 5/5, hip adduction 5/5, knee extension 5/5, knee flexion 5/5, ankle dorsiflexion 5/5. Sensation intact bilateral anterior thigh, medial and lateral lower leg, dorsal foot. Brisk cap refill. Results & Data Results & Data Laboratory Results . Diagnostic Findings . PG Care Time/CCT Total # of Minutes Spent Total Time Spent with Patient: Total time spent is greater than 50% in coordination of care (as documented) at patient's floor/unit and/or counseling patient: Supervising Physician Co-Signing Physician Notes Patient seen and examined this afternoon, agree with plan and history/physical as above. Severe T11 fracture on MRI t spine but no severe neurologic compression. Mobilize with TLSO brace, he reports better pain control and no neurologic complaints. Normal strength in legs, normal sensation in genital areas as he has been able to feel suppository and catheter manipulation by nursing. Recommend PT/rehab, follow up in ~2 weeks in spine clinic. Coding Level of Care Code 08192 SUB INP/OBS CARE 06/01MIN Medical Decision Making Straight Forward Diagnoses Compression fracture of L1 vertebra, initial encounter S32.010A Encounter type: initial encounter Lumbar vertebra fracture level: L1 Compression fracture of T11 vertebra, initial encounter S22.080A Encounter type: initial encounter Thoracic vertebra fracture level: T11 (1) Compression fracture of lumbar vertebra Encounter type: initial encounter Lumbar vertebra fracture level: L1 Qualified Code(s): S32.010A - Wedge compression fracture of first lumbar vertebra, initial encounter for closed fracture (2) Compression fracture of thoracic vertebra Encounter type: initial encounter Thoracic vertebra fracture level: T11 Qualified Code(s): S22.080A - Wedge compression fracture of T11-T12 vertebra, initial encounter for closed fracture
--- NOTE | 2024-10-23 12:44 | Magnetic Resonance Report ---
MR thoracic spine wo con CLINICAL HISTORY: T11 compression fx COMPARISON STUDY: 10/18/2024 FINDINGS: There is a stable vertebral body compression fracture at T11 with severe height loss. Stabl e mild increased STIR signal. Stable mild retropulsion of the posterior superior aspect of the T11 ve rtebral body causing mild mass effect on the anterior thecal sac without significant central canal na rrowing. No acute fracture or subluxation seen in the thoracic spine. Thoracic spinal cord has normal signal and contour. CSF signal alteration at the lower thoracic spine could represent flow artifact or trace subarachnoid hemorrhage, stable. No epidural hematoma seen. Stable mild height loss at the L 1 vertebral body. IMPRESSION: 1. No acute findings. 2. Stable severe vertebral body compression fracture at T11. ACT 112: Negative or not required by law. Electronically signed by: Cullen Ryder M.D. 10/23/2024 12:41 PM
--- NOTE | 2024-10-23 12:54 | Hospitalist Progress Note ---
Date of Service October 23, 2024 Assessment & Plan (1) Low back pain: Plan: Improved with parenteral steroid therapy which has been discontinued. Appreciate orthopedic spine consultation and recommendations. Nonsurgical treatment including TLSO brace ordered. Supportive care. Known chronic T11 and L1 compression fractures. Pain control measures. (2) Bilateral subdural hematomas: Plan: Recently drained. Head CT scan #2 done on October 19, reveals evidence of a small amount of intraventricular hemorrhage and subarachnoid hemorrhage. Head CT scan #3 done October 20 is stable. The patient is currently asymptomatic. Avoid subcutaneous heparin or Lovenox. No systemic anticoagulation, aspirin, nonsteroidal anti-inflammatory medication (3) Hyperglycemia: Plan: Parenteral steroid induced. Now resolved off steroid therapy he is not diabetic. Sliding scale coverage was ordered temporarily. Plan Anticipate placement at either [facility] or [facility] when arrangements are finalized. Admission and Anticipated Discharge Date Admission Date: October 19, 2024 Subjective Alert and oriented. He is orthopedic spine consultation noted. TLSO brace has been ordered. Vo catheter will be removed today, October 23. Case management pursuing placement at either [facility] or [facility]. Review of Systems 2 Review of Systems: Constitutionalno fever or chills ENTno blurred vision, no double vision, no epistaxis, no sore throat Respiratoryno cough, no wheezing, no shortness of breath Cardiacno palpitations, no chest pain, no syncope Lanny nausea, vomiting, diarrhea, melena, hematochezia GUno urinary retention, no urinary incontinence, no dysuria, no hematuria Musculoskeletalno joint pain, no muscle tenderness. Lumbar discomfort with movement Skinno bruising, no rashes, no pruritus Neurono isolated weakness, no paresthesia, no weakness Psychno depression, no anxiety Physical Exam 2 Physical Exam: General-alert and oriented x3, no fever, no chills HEENT-head atraumatic and normocephalic, pupils equal and reactive to light, extraocular muscles intact Neck-no lymphadenopathy or thyromegaly, trachea midline Chest-clear to auscultation. No rales, wheezing or rhonchi Cardiac-regular rate and rhythm, normal S1 and S2 Abdomen-normal bowel sounds, no hepatosplenomegaly Extremities-no cyanosis, clubbing, or edema GUFoley catheter in place with no evidence of hematuria Neuro-cranial nerves II through XII intact, motor and sensory function within normal limits, strength symmetrical, no focal deficits Psych-normal affect, normal mood Results & Data Results & Data Vital Signs (Past 12 Hours) Vital Signs Temp Pulse Resp BP Pulse Ox O2 Del Method 10/23/24 06:59 37.0 C 118 H 18 129/75 95 Room Air Laboratory Results 10/23/24 05:43 10/23/24 05:43 PG Care Time/CCT Total # of Minutes Spent Total Time Spent with Patient: Total time spent is greater than 50% in coordination of care (as documented) at patient's floor/unit and/or counseling patient: Coding Level of Care Code 53217 SUB INP/OBS CARE 2/35MIN Diagnoses Low back pain M54.50 Bilateral subdural hematomas S06.5XAA Hyperglycemia R73.9
[2024-10-23] MEDS: bisacodyL 10 MG SUPP PR PRN (14:24)
[2024-10-23] MEDS: DOCUSATE SODIUM 100 MG CAP PO SCH (14:25)
[2024-10-23] MEDS: MAGNESIUM CITRATE 296 ML/BTL PO STA (17:37)
[2024-10-23] MEDS: METOPROLOL TARTRATE 50 MG TAB PO STA (18:29)
[2024-10-24 08:11] LABS: BUN Creatinine Ratio 33.3 (10-20); Calcium 8.4 mg/dl (8.6-10.3); Creatinine Clr Calc Pharmacy 106.6 ml/min; Potassium 4.1 mmol/L (3.5-5.1)
[2024-10-24] MEDS: METOPROLOL TARTRATE 50 MG TAB PO SCH (08:33)
--- NOTE | 2024-10-24 12:49 | Hospitalist Progress Note ---
Date of Service October 24, 2024 Assessment & Plan (1) Low back pain: Plan: Improved with parenteral steroid therapy which has been discontinued. Appreciate orthopedic spine consultation and recommendations. Nonsurgical treatment including TLSO brace ordered. Supportive care. Known chronic T11 and L1 compression fractures. Pain control measures. (2) Bilateral subdural hematomas: Plan: Recently drained. Head CT scan #2 done on October 19, reveals evidence of a small amount of intraventricular hemorrhage and subarachnoid hemorrhage. Head CT scan #3 done October 20 is stable. The patient is currently asymptomatic. Avoid subcutaneous heparin or Lovenox. No systemic anticoagulation, aspirin, nonsteroidal anti-inflammatory medication (3) Hyperglycemia: Plan: Parenteral steroid induced. Now resolved off steroid therapy. He is not diabetic. Sliding scale coverage was ordered temporarily. Plan Anticipate placement at either [facility] or [facility] when arrangements are finalized. He is now medically stable for discharge Admission and Anticipated Discharge Date Admission Date: October 19, 2024 Subjective Alert and oriented. The patient believes he is doing better. Vo catheter was removed on October 23 and he is voiding uneventfully. Metoprolol was added yesterday, October 23, and sinus tachycardia has improved and is currently mild. He states he has had a bowel movement and is doing better. Placement is pending at either [facility] or [facility]. Review of Systems 2 Review of Systems: Constitutionalno fever or chills ENTno blurred vision, no double vision, no epistaxis, no sore throat Respiratoryno cough, no wheezing, no shortness of breath Cardiacno palpitations, no chest pain, no syncope Lanny nausea, vomiting, diarrhea, melena, hematochezia GUno urinary retention, no urinary incontinence, no dysuria, no hematuria Musculoskeletalno joint pain, no muscle tenderness. Lumbar discomfort with movement Skinno bruising, no rashes, no pruritus Neurono isolated weakness, no paresthesia, no weakness Psychno depression, no anxiety Physical Exam 2 Physical Exam: General-alert and oriented x3, no fever, no chills HEENT-head atraumatic and normocephalic, pupils equal and reactive to light, extraocular muscles intact Neck-no lymphadenopathy or thyromegaly, trachea midline Chest-clear to auscultation. No rales, wheezing or rhonchi Cardiac-regular rate and rhythm, normal S1 and S2 Abdomen-normal bowel sounds, no hepatosplenomegaly Extremities-no cyanosis, clubbing, or edema GUFoley catheter in place with no evidence of hematuria Neuro-cranial nerves II through XII intact, motor and sensory function within normal limits, strength symmetrical, no focal deficits Psych-normal affect, normal mood Results & Data Results & Data Vital Signs (Past 12 Hours) Vital Signs Temp Pulse Resp BP Pulse Ox O2 Del Method 10/24/24 08:30 108 H 126/74 96 Room Air 10/24/24 07:49 36.8 C 99 H 16 127/74 96 Room Air Laboratory Results 10/23/24 05:43 10/24/24 07:04 PG Care Time/CCT Total # of Minutes Spent Total Time Spent with Patient: Total time spent is greater than 50% in coordination of care (as documented) at patient's floor/unit and/or counseling patient: Coding Level of Care Code 77839 SUB INP/OBS CARE 2/35MIN Diagnoses Low back pain M54.50 Bilateral subdural hematomas S06.5XAA Hyperglycemia R73.9
[2024-10-25 06:52] LABS: BUN Creatinine Ratio 28.6 (10-20); Calcium 8.4 mg/dl (8.6-10.3); Creatinine Clr Calc Pharmacy 101.5 ml/min; Potassium 4.5 mmol/L (3.5-5.1)
[2024-10-25] MEDS: METOPROLOL TARTRATE 25 MG TAB PO SCH (09:30)
[2024-10-25] MEDS: predniSONE 10 MG TABLET PO SCH (09:30)
--- NOTE | 2024-10-25 11:05 | Discharge Summary ---
Discharge Summary Date of Service October 25, 2024 Principal Dx & Hospital Course #1 = Principal Diagnosis (1) Low back pain: Improved with parenteral steroid therapy which has been switched to oral prednisone in a tapering dose fashion. Appreciate orthopedic spine consultation and recommendations. Nonsurgical treatment including TLSO brace ordered. Supportive care. Known chronic T11 and L1 compression fractures. Pain control measures. (2) Bilateral subdural hematomas: Recently drained. Head CT scan #2 done on October 19, reveals evidence of a small amount of intraventricular hemorrhage and subarachnoid hemorrhage. Head CT scan #3 done October 20 is stable. The patient is currently asymptomatic. Avoid subcutaneous heparin or Lovenox. No systemic anticoagulation, aspirin, nonsteroidal anti-inflammatory medication (3) Hyperglycemia: Parenteral steroid induced. Now resolved off steroid therapy. He is not diabetic. Sliding scale coverage was ordered temporarily. Plan Discharge to [facility], October 25 Admission HPI Per Admitting Provider 69-year-old male PMHx recent subdural hematoma that required evacuation on 10/11/2024 and had bilateral drains placed who is presenting with back pain worsening over the past 2 weeks. Was initially evaluated in the ED on 10/06/2024 after sustaining a fall off a porch that resulted in identification of bilateral acute appearing subdural hematomas, R >L, 8 mm leftward shift. Patient was transferred to [facility] at that time where a douglas hole completed with drains. Patient presenting now for worsening back pain, worsening 4 days [employer]. Mainly lower back pain, radiation down BLE. Has not had any recent falls. Pain is localized to low back, sharp in nature. Pain down bilateral legs feels like tightness, occasional burning sensation at heels. Patient without bowel or bladder incontinence. No saddle anesthesia. Patient has been unable to ambulate independently, requiring assistance from family members. Difficulty sitting up secondary to pain. Denies chest pain, SOB, palpitations, abdominal pain, N/V/D/C, numbness/tingling aside from legs, URI symptoms, LUTS, fever/chills, weakness, syncope or LOC. Patient does not take any daily medications. Has been trying [id number] medications to help alleviate pain, minimal relief. Patient son-in-law is present in room at time of visit, helps provide history. Patient is to follow with [facility] orthopedic provider on 10/21/2024. ED evaluation reveals leukocytosis 12.82, H&H stable; PT/INR WNL; CMP potassium 135, BUN/creatinine ratio 23.5, glucose 157, AST 41; UA negative for infection; lumbar spine CT mild chronic appearing vertebral body compression fracture at L1, no other lumbar fracture or subluxation seen, lumbar degenerative findings with moderate severe central canal narrowing at L4-L5; R shoulder XR. Distal tip of fracture clavicle appears closer to the skin surface but otherwise stable; head CT significant improvement of acute bilateral SDH with interval douglas holes, acute on chronic SDH right hemisphere mild acute SDH L frontal possibly also posterior falx/tentorium, intraventricular hemorrhage and subarachnoid hemorrhage present; lumbar spine MRI suspicious for subarachnoid hemorrhage, no definite epidural hematoma, severe central spinal stenosis L4-L5 degenerative, mild residual edema involving T11 compression fracture reflects ongoing healing.; Provided with 500 mL NSS, Zofran 4 mg IV, morphine 4 mg IV x [address] in [address] Please see Dr. Kevin's attestation for adjustments/additions to treatment plan. Discharge Exam General-alert and oriented x3, no fever, no chills HEENT-head atraumatic and normocephalic, pupils equal and reactive to light, extraocular muscles intact Neck-no lymphadenopathy or thyromegaly, trachea midline Chest-clear to auscultation. No rales, wheezing or rhonchi Cardiac-regular rate and rhythm, normal S1 and S2 Abdomen-normal bowel sounds, no hepatosplenomegaly Extremities-no cyanosis, clubbing, or edema GUFoley catheter in place with no evidence of hematuria Neuro-cranial nerves II through XII intact, motor and sensory function within normal limits, strength symmetrical, no focal deficits Psych-normal affect, normal mood Discharge Plan Discharge Items Patient Disposition: Transfer Nursing Home Fac Reason For Visit: ACUTE BACK PAIN Discharge Diagnosis: Lumbar stenosis causing back pain, essential hypertension with sinus tachycardia, constipation Condition on Discharge: Good Activity: Per Instructions section Activity Comment: As tolerated Non-emergency contact: Primary Care Provider Call non-emergency contact if: your symptoms worsen Follow-up/Referrals: PCP,NO [Primary Care Provider] - Diet: Regular Addtl Attending Provider Instructions: Take prednisone in a tapering dose fashion as directed. Take metoprolol 75 mg twice daily to control heart rate and blood pressure. Wear back brace as instructed by orthopedics and follow-up with orthopedic surgery after discharge from [facility]. Pending Studies at Discharge: No Stand-Alone Forms: My [facility] Skilled Items Patient informed of condition?: Yes DNR: No Discharge Level of Care: Acute rehab Communicable Disease: No Discharge Prognosis: Stable Lines: None Urinary Catheter: No Medications and DC Order Prescriptions: New oxycodone 5 mg Tablet 5 mg PO Q4H PRNQty: 0 0RF tamsulosin 0.4 mg Capsule 0.4 mg PO QAM Qty: 0 0RF prednisone 10 mg Tablet See Rx Instructions .ROUTE .COMPLEX Qty: 0 0RF Rx Instructions: 10 mg orally 3 times a day for 2 days, then 10 mg twice a day for 2 days, then 10 mg once a day for 2 days, then stop sennosides [Senokot] 8.6 mg Tablet 17.2 mg PO BID Qty: 0 0RF polyethylene glycol 3350 [Miralax] 17 gram Powder In Packet 17 g PO BID Qty: 0 0RF docusate sodium 100 mg Capsule 100 mg PO BID Qty: 0 0RF metoprolol tartrate 25 mg Tablet 75 mg PO BID Qty: 0 0RF Continued One A Day Men Complete 240-25-300 mcg Tablet 1 tab PO DAILY Discharge Orders: Discharge Order (Routine); Ordered 10/25/24 Ordered By: Deni Mckeon Admission Data Admit Date/Time: 10/19/24 00:35 Attending Provider: Deni Mckeon Admit Provider: Jose Daniel Kevin Primary Care Provider: PCP,NO Other Providers: [facility]; [facility]; Jose Daniel Kevin; Jesus Morfin Eric L; [facility]; [facility], Hospital Stay Data Consultations 10/18/24 23:59 ED Decision to Admit Stat 10/21/24 08:48 Consult Orthopedic Spine Surgery Routine 10/21/24 09:55 Consult Orthopedic Spine Surgery Routine Diagnostic Imagining Performed 10/18/24 14:36 CT lumbar spine wo con Stat 10/18/24 15:43 MRI Lumbar Spine [MR lumbar spine wo con] Stat 10/18/24 21:04 CT head/brain wo con Stat 10/19/24 08:00 CT head/brain wo con Routine 10/20/24 08:00 CT head/brain wo con DAILY 10/23/24 10:34 MRI Thoracic [MR thoracic spine wo con] Routine Pending Results Patient Have Any Pending Studies at Discharge: No Discharge Instructions Given to Patient (Per Discharging Provider) Take prednisone in a tapering dose fashion as directed. Take metoprolol 75 mg twice daily to control heart rate and blood pressure. Wear back brace as instructed by orthopedics and follow-up with orthopedic surgery after discharge from [facility]. Total Time Total Time Spent Total Time Spent (In Minutes): 50 minutes Coding Level of Care Code 71908 INP/OBS DISCH >30 MIN Diagnoses Low back pain M54.50 Bilateral subdural hematomas S06.5XAA Hyperglycemia R73.9
--- NOTE | 2024-10-25 13:22 | Electrocardiogram Report ---
Test Reason : Blood Pressure : */* mmHG Vent. Rate : 139 BPM Atrial Rate : 139 BPM P-R Int : 150 ms QRS Dur : 104 ms QT Int : 272 ms P-R-T Axes : 59 80 2 degrees QTcB Int : 413 ms Sinus tachycardia with Premature atrial complexes Incomplete right bundle branch block Possible Right ventricular hypertrophy Abnormal ECG When compared with ECG of 21-Oct-2024 07:59, Premature atrial complexes are now Present Vent. rate has increased by 66 bpm Incomplete right bundle branch block has replaced Right bundle branch block Confirmed by Yuri Benton ([id number]) on 10/25/2024 1:22:30 PM Referred By: REFERRED SELF Confirmed By: Yuri Benton
--- NOTE | 2024-10-25 13:36 | Hospitalist Progress Note ---
Date of Service October 25, 2024 Assessment & Plan (1) Low back pain: Plan: Improved with parenteral steroid therapy which has been switched to oral prednisone in a tapering dose fashion. Appreciate orthopedic spine consultation and recommendations. Nonsurgical treatment including TLSO brace ordered. Supportive care. Known chronic T11 and L1 compression fractures. Pain control measures. (2) Bilateral subdural hematomas: Plan: Recently drained. Head CT scan #2 done on October 19, reveals evidence of a small amount of intraventricular hemorrhage and subarachnoid hemorrhage. Head CT scan #3 done October 20 is stable. The patient is currently asymptomatic. Avoid subcutaneous heparin or Lovenox. No systemic anticoagulation, aspirin, nonsteroidal anti-inflammatory medication (3) Hyperglycemia: Plan: Parenteral steroid induced. Now resolved off steroid therapy. He is not diabetic. Sliding scale coverage was ordered temporarily. Plan Discharge to SNF or [facility] when arrangements are finalized Admission and Anticipated Discharge Date Admission Date: October 19, 2024 Subjective Alert and oriented. No new problems. Anticipated discharge to [facility] was canceled due to to technical reasons regarding insurance coverage. Review of Systems 2 Review of Systems: Constitutionalno fever or chills ENTno blurred vision, no double vision, no epistaxis, no sore throat Respiratoryno cough, no wheezing, no shortness of breath Cardiacno palpitations, no chest pain, no syncope Lanny nausea, vomiting, diarrhea, melena, hematochezia GUno urinary retention, no urinary incontinence, no dysuria, no hematuria Musculoskeletalno joint pain, no muscle tenderness. Lumbar discomfort with movement Skinno bruising, no rashes, no pruritus Neurono isolated weakness, no paresthesia, no weakness Psychno depression, no anxiety Physical Exam 2 Physical Exam: General-alert and oriented x3, no fever, no chills HEENT-head atraumatic and normocephalic, pupils equal and reactive to light, extraocular muscles intact Neck-no lymphadenopathy or thyromegaly, trachea midline Chest-clear to auscultation. No rales, wheezing or rhonchi Cardiac-regular rate and rhythm, normal S1 and S2 Abdomen-normal bowel sounds, no hepatosplenomegaly Extremities-no cyanosis, clubbing, or edema GUFoley catheter in place with no evidence of hematuria Neuro-cranial nerves II through XII intact, motor and sensory function within normal limits, strength symmetrical, no focal deficits Psych-normal affect, normal mood Results & Data Results & Data Vital Signs (Past 12 Hours) Vital Signs Temp Pulse Resp BP Pulse Ox O2 Del Method 10/25/24 09:29 37.2 C 102 H 17 128/76 95 Room Air Laboratory Results 10/23/24 05:43 10/25/24 05:47 PG Care Time/CCT Total # of Minutes Spent Total Time Spent with Patient: Total time spent is greater than 50% in coordination of care (as documented) at patient's floor/unit and/or counseling patient: Coding Level of Care Code 06807 SUB INP/OBS CARE 2/35MIN Diagnoses Low back pain M54.50 Bilateral subdural hematomas S06.5XAA Hyperglycemia R73.9
[2024-10-26 07:30] LABS: BUN Creatinine Ratio 25.8 (10-20); Calcium 8.6 mg/dl (8.6-10.3); Creatinine Clr Calc Pharmacy 103.2 ml/min
--- NOTE | 2024-10-26 12:07 | Hospitalist Progress Note ---
Date of Service October 26, 2024 Assessment & Plan (1) Low back pain: Plan: Improved with parenteral steroid therapy which has been switched to oral prednisone in a tapering dose fashion. Appreciate orthopedic spine consultation and recommendations. Nonsurgical treatment including TLSO brace ordered. Supportive care. Known chronic T11 and L1 compression fractures. Pain control measures. (2) Bilateral subdural hematomas: Plan: Recently drained. Head CT scan #2 done on October 19, reveals evidence of a small amount of intraventricular hemorrhage and subarachnoid hemorrhage. Head CT scan #3 done October 20 is stable. The patient is currently asymptomatic. Avoid subcutaneous heparin or Lovenox. No systemic anticoagulation, aspirin, nonsteroidal anti-inflammatory medication (3) Hyperglycemia: Plan: Parenteral steroid induced. Now resolved off steroid therapy. He is not diabetic. Sliding scale coverage was ordered temporarily. Plan Discharge to SNF or [facility] when arrangements are finalized Admission and Anticipated Discharge Date Admission Date: October 19, 2024 Subjective Alert and oriented. No new problems. Blood pressure and heart rate are now acceptable. Metoprolol was uptitrated yesterday, October 25. He remains on a prednisone 10 mg tapering dose. Case management is pursuing medical assistance. He states he is voiding without incident since the Vo has been removed on October 23. Review of Systems 2 Review of Systems: Constitutionalno fever or chills ENTno blurred vision, no double vision, no epistaxis, no sore throat Respiratoryno cough, no wheezing, no shortness of breath Cardiacno palpitations, no chest pain, no syncope Lanny nausea, vomiting, diarrhea, melena, hematochezia GUno urinary retention, no urinary incontinence, no dysuria, no hematuria Musculoskeletalno joint pain, no muscle tenderness. Lumbar discomfort with movement Skinno bruising, no rashes, no pruritus Neurono isolated weakness, no paresthesia, no weakness Psychno depression, no anxiety Physical Exam 2 Physical Exam: General-alert and oriented x3, no fever, no chills HEENT-head atraumatic and normocephalic, pupils equal and reactive to light, extraocular muscles intact Neck-no lymphadenopathy or thyromegaly, trachea midline Chest-clear to auscultation. No rales, wheezing or rhonchi Cardiac-regular rate and rhythm, normal S1 and S2 Abdomen-normal bowel sounds, no hepatosplenomegaly Extremities-no cyanosis, clubbing, or edema GUley catheter in place with no evidence of hematuria Neuro-cranial nerves II through XII intact, motor and sensory function within normal limits, strength symmetrical, no focal deficits Psych-normal affect, normal mood Results & Data Results & Data Vital Signs (Past 12 Hours) Vital Signs Temp Pulse Resp BP Pulse Ox O2 Del Method 10/26/24 07:26 36.4 C L 74 18 128/80 96 Room Air Laboratory Results 10/23/24 05:43 10/26/24 05:56 PG Care Time/CCT Total # of Minutes Spent Total Time Spent with Patient: Total time spent is greater than 50% in coordination of care (as documented) at patient's floor/unit and/or counseling patient: Coding Level of Care Code 74316 SUB INP/OBS CARE 2/35MIN Diagnoses Low back pain M54.50 Bilateral subdural hematomas S06.5XAA Hyperglycemia R73.9
--- NOTE | 2024-10-27 14:49 | Hospitalist Progress Note ---
Date of Service October 27, 2024 Assessment & Plan (1) Low back pain: Plan: Improved with parenteral steroid therapy which has been switched to oral prednisone in a tapering dose fashion. Prednisone dosage tapered down today, October 27. Appreciate orthopedic spine consultation and recommendations. Nonsurgical treatment including TLSO brace ordered. Supportive care. Known chronic T11 and L1 compression fractures. Pain control measures. (2) Bilateral subdural hematomas: Plan: Recently drained. Head CT scan #2 done on October 19, reveals evidence of a small amount of intraventricular hemorrhage and subarachnoid hemorrhage. Head CT scan #3 done October 20 is stable. The patient is currently asymptomatic. Avoid subcutaneous heparin or Lovenox. No systemic anticoagulation, aspirin, nonsteroidal anti-inflammatory medication (3) Hyperglycemia: Plan: Parenteral steroid induced. Now resolved off steroid therapy. He is not diabetic. Sliding scale coverage was ordered temporarily. Plan Discharge to SNF or [facility] when medical assistance has been granted and arrangements are finalized Admission and Anticipated Discharge Date Admission Date: October 19, 2024 Subjective Alert and oriented. No distress. His son and [id number] are at the bedside. No new problems. Prednisone dosage tapered down today, October 27. Awaiting medical assistance determination so placement proceedings can move forward Review of Systems 2 Review of Systems: Constitutionalno fever or chills ENTno blurred vision, no double vision, no epistaxis, no sore throat Respiratoryno cough, no wheezing, no shortness of breath Cardiacno palpitations, no chest pain, no syncope Lanny nausea, vomiting, diarrhea, melena, hematochezia GUno urinary retention, no urinary incontinence, no dysuria, no hematuria Musculoskeletalno joint pain, no muscle tenderness. Lumbar discomfort with movement Skinno bruising, no rashes, no pruritus Neurono isolated weakness, no paresthesia, no weakness Psychno depression, no anxiety Physical Exam 2 Physical Exam: General-alert and oriented x3, no fever, no chills HEENT-head atraumatic and normocephalic, pupils equal and reactive to light, extraocular muscles intact Neck-no lymphadenopathy or thyromegaly, trachea midline Chest-clear to auscultation. No rales, wheezing or rhonchi Cardiac-regular rate and rhythm, normal S1 and S2 Abdomen-normal bowel sounds, no hepatosplenomegaly Extremities-no cyanosis, clubbing, or edema GUFoley catheter in place with no evidence of hematuria Neuro-cranial nerves II through XII intact, motor and sensory function within normal limits, strength symmetrical, no focal deficits Psych-normal affect, normal mood Results & Data Results & Data Vital Signs (Past 12 Hours) Vital Signs Temp Pulse Resp BP Pulse Ox O2 Del Method 10/27/24 07:25 Room Air 10/27/24 07:22 36.3 C L 70 16 125/72 97 Room Air Laboratory Results 10/23/24 05:43 10/26/24 05:56 PG Care Time/CCT Total # of Minutes Spent Total Time Spent with Patient: Total time spent is greater than 50% in coordination of care (as documented) at patient's floor/unit and/or counseling patient: Coding Level of Care Code 46732 SUB INP/OBS CARE 2/35MIN Diagnoses Low back pain M54.50 Bilateral subdural hematomas S06.5XAA Hyperglycemia R73.9
[2024-10-27] MEDS: predniSONE 10 MG TABLET PO SCH (22:00)
--- NOTE | 2024-10-28 11:41 | Hospitalist Progress Note ---
Date of Service October 28, 2024 Assessment & Plan (1) Low back pain: Plan: Improved with parenteral steroid therapy which has been switched to oral prednisone in a tapering dose fashion. Prednisone dosage tapered down on October 27 and will be tapered down again tomorrow, October 29.. Appreciate orthopedic spine consultation and recommendations. Nonsurgical treatment including TLSO brace ordered. Supportive care. Known chronic T11 and L1 compression fractures. Pain control measures. (2) Bilateral subdural hematomas: Plan: Recently drained. Head CT scan #2 done on October 19, reveals evidence of a small amount of intraventricular hemorrhage and subarachnoid hemorrhage. Head CT scan #3 done October 20 is stable. The patient is currently asymptomatic. Avoid subcutaneous heparin or Lovenox. No systemic anticoagulation, aspirin, nonsteroidal anti-inflammatory medication (3) Hyperglycemia: Plan: Parenteral steroid induced. Now resolved off steroid therapy. He is not diabetic. Sliding scale coverage was ordered temporarily. Plan Discharge to SNF or [facility] when medical assistance has been granted and arrangements are finalized Admission and Anticipated Discharge Date Admission Date: October 19, 2024 Subjective Stable overall. Good spirits. No new problems. Review of Systems 2 Review of Systems: Constitutionalno fever or chills ENTno blurred vision, no double vision, no epistaxis, no sore throat Respiratoryno cough, no wheezing, no shortness of breath Cardiacno palpitations, no chest pain, no syncope Lanny nausea, vomiting, diarrhea, melena, hematochezia GUno urinary retention, no urinary incontinence, no dysuria, no hematuria Musculoskeletalno joint pain, no muscle tenderness. Lumbar discomfort with movement Skinno bruising, no rashes, no pruritus Neurono isolated weakness, no paresthesia, no weakness Psychno depression, no anxiety Physical Exam 2 Physical Exam: General-alert and oriented x3, no fever, no chills HEENT-head atraumatic and normocephalic, pupils equal and reactive to light, extraocular muscles intact Neck-no lymphadenopathy or thyromegaly, trachea midline Chest-clear to auscultation. No rales, wheezing or rhonchi Cardiac-regular rate and rhythm, normal S1 and S2 Abdomen-normal bowel sounds, no hepatosplenomegaly Extremities-no cyanosis, clubbing, or edema GUFoley catheter in place with no evidence of hematuria Neuro-cranial nerves II through XII intact, motor and sensory function within normal limits, strength symmetrical, no focal deficits Psych-normal affect, normal mood Results & Data Results & Data Vital Signs (Past 12 Hours) Vital Signs Temp Pulse Resp BP Pulse Ox O2 Del Method 10/28/24 07:08 36.3 C L 64 16 122/75 98 Room Air Laboratory Results 10/23/24 05:43 10/26/24 05:56 PG Care Time/CCT Total # of Minutes Spent Total Time Spent with Patient: Total time spent is greater than 50% in coordination of care (as documented) at patient's floor/unit and/or counseling patient: Coding Level of Care Code 56300 SUB INP/OBS CARE 2/35MIN Diagnoses Low back pain M54.50 Bilateral subdural hematomas S06.5XAA Hyperglycemia R73.9
--- NOTE | 2024-10-29 16:13 | Hospitalist Progress Note ---
Date of Service October 29, 2024 Assessment & Plan (1) Low back pain: Plan: Improved with parenteral steroid therapy which has been switched to oral prednisone in a tapering dose fashion. Prednisone dosage tapered down to once daily dosing today, October 29. Appreciate orthopedic spine consultation and recommendations. Nonsurgical treatment including TLSO brace ordered. Supportive care. Known chronic T11 and L1 compression fractures. Pain control measures. (2) Bilateral subdural hematomas: Plan: Recently drained. Head CT scan #2 done on October 19, reveals evidence of a small amount of intraventricular hemorrhage and subarachnoid hemorrhage. Head CT scan #3 done October 20 is stable. The patient is currently asymptomatic. Avoid subcutaneous heparin or Lovenox. No systemic anticoagulation, aspirin, nonsteroidal anti-inflammatory medication (3) Hyperglycemia: Plan: Parenteral steroid induced. Now resolved off steroid therapy. He is not diabetic. Sliding scale coverage was ordered temporarily. Plan Discharge to SNF or [facility] when medical assistance has been granted and arrangements are finalized Admission and Anticipated Discharge Date Admission Date: October 19, 2024 Subjective Alert and oriented. He refused to take several medications this morning but after we talked he is now agreeable to take them understanding they are necessary. Heart rate and blood pressure remain remain satisfactory. Prednisone tapered down to once daily dosing. This will be discontinued in a few days. Review of Systems 2 Review of Systems: Constitutionalno fever or chills ENTno blurred vision, no double vision, no epistaxis, no sore throat Respiratoryno cough, no wheezing, no shortness of breath Cardiacno palpitations, no chest pain, no syncope Lanny nausea, vomiting, diarrhea, melena, hematochezia GUno urinary retention, no urinary incontinence, no dysuria, no hematuria Musculoskeletalno joint pain, no muscle tenderness. Lumbar discomfort with movement Skinno bruising, no rashes, no pruritus Neurono isolated weakness, no paresthesia, no weakness Psychno depression, no anxiety Physical Exam 2 Physical Exam: General-alert and oriented x3, no fever, no chills HEENT-head atraumatic and normocephalic, pupils equal and reactive to light, extraocular muscles intact Neck-no lymphadenopathy or thyromegaly, trachea midline Chest-clear to auscultation. No rales, wheezing or rhonchi Cardiac-regular rate and rhythm, normal S1 and S2 Abdomen-normal bowel sounds, no hepatosplenomegaly Extremities-no cyanosis, clubbing, or edema GUFoley catheter in place with no evidence of hematuria Neuro-cranial nerves II through XII intact, motor and sensory function within normal limits, strength symmetrical, no focal deficits Psych-normal affect, normal mood Results & Data Results & Data Vital Signs (Past 12 Hours) Vital Signs Temp Pulse Resp BP Pulse Ox O2 Del Method 10/29/24 14:14 36.6 C 80 16 116/71 98 Room Air 10/29/24 07:07 36.4 C L 89 18 118/78 98 Room Air Laboratory Results 10/23/24 05:43 10/26/24 05:56 PG Care Time/CCT Total # of Minutes Spent Total Time Spent with Patient: Total time spent is greater than 50% in coordination of care (as documented) at patient's floor/unit and/or counseling patient: Coding Level of Care Code 47437 SUB INP/OBS CARE 2/35MIN Diagnoses Low back pain M54.50 Bilateral subdural hematomas S06.5XAA Hyperglycemia R73.9
[2024-10-30] MEDS: predniSONE 10 MG TABLET PO SCH (08:32)
--- NOTE | 2024-10-30 13:51 | Hospitalist Progress Note ---
Date of Service October 30, 2024 Assessment & Plan (1) Low back pain: Plan: Improved with parenteral steroid therapy which has been switched to oral prednisone in a tapering dose fashion. Prednisone dosage tapered down to once daily dosing today, October 29. Appreciate orthopedic spine consultation and recommendations. Nonsurgical treatment including TLSO brace ordered. Supportive care. Known chronic T11 and L1 compression fractures. Pain control measures. (2) Bilateral subdural hematomas: Plan: Recently drained. Head CT scan #2 done on October 19 reveals evidence of a small amount of intraventricular hemorrhage and subarachnoid hemorrhage. Head CT scan #3 done October 20 is stable. The patient is currently asymptomatic. Avoid subcutaneous heparin or Lovenox. No systemic anticoagulation, aspirin, nonsteroidal anti-inflammatory medication (3) Hyperglycemia: Plan: Parenteral steroid induced. Now resolved off parenteral steroid therapy. Prednisone will be discontinued tomorrow, October 31. He is not diabetic. Sliding scale coverage was ordered temporarily. Plan Discharge to SNF or [facility] when medical assistance has been granted and arrangements are finalized Admission and Anticipated Discharge Date Admission Date: October 19, 2024 Subjective Medically stable. No new problems. Prednisone will be discontinued tomorrow, October 31 Review of Systems 2 Review of Systems: Constitutionalno fever or chills ENTno blurred vision, no double vision, no epistaxis, no sore throat Respiratoryno cough, no wheezing, no shortness of breath Cardiacno palpitations, no chest pain, no syncope Lanny nausea, vomiting, diarrhea, melena, hematochezia GUno urinary retention, no urinary incontinence, no dysuria, no hematuria Musculoskeletalno joint pain, no muscle tenderness. Lumbar discomfort with movement Skinno bruising, no rashes, no pruritus Neurono isolated weakness, no paresthesia, no weakness Psychno depression, no anxiety Physical Exam 2 Physical Exam: General-alert and oriented x3, no fever, no chills HEENT-head atraumatic and normocephalic, pupils equal and reactive to light, extraocular muscles intact Neck-no lymphadenopathy or thyromegaly, trachea midline Chest-clear to auscultation. No rales, wheezing or rhonchi Cardiac-regular rate and rhythm, normal S1 and S2 Abdomen-normal bowel sounds, no hepatosplenomegaly Extremities-no cyanosis, clubbing, or edema GUFoley catheter in place with no evidence of hematuria Neuro-cranial nerves II through XII intact, motor and sensory function within normal limits, strength symmetrical, no focal deficits Psych-normal affect, normal mood Results & Data Results & Data Vital Signs (Past 12 Hours) Vital Signs Temp Pulse Resp BP Pulse Ox O2 Del Method 10/30/24 07:09 36.3 C L 82 16 127/82 97 Room Air Laboratory Results 10/23/24 05:43 10/26/24 05:56 PG Care Time/CCT Total # of Minutes Spent Total Time Spent with Patient: Total time spent is greater than 50% in coordination of care (as documented) at patient's floor/unit and/or counseling patient: Coding Level of Care Code 11857 SUB INP/OBS CARE 2/35MIN Diagnoses Low back pain M54.50 Bilateral subdural hematomas S06.5XAA Hyperglycemia R73.9
[2024-10-31 07:12] VITALS: RESP 16
--- NOTE | 2024-10-31 13:26 | Hospitalist Progress Note ---
Date of Service October 31, 2024 Assessment & Plan (1) Low back pain: Plan: Improved with parenteral steroid therapy which was switched to oral prednisone tapered off today, October 31. Appreciate orthopedic spine consultation and recommendations. Nonsurgical treatment including TLSO brace ordered. Supportive care. Known chronic T11 and L1 compression fractures. Pain control measures. (2) Bilateral subdural hematomas: Plan: Recently drained. Head CT scan #2 done on October 19 reveals evidence of a small amount of intraventricular hemorrhage and subarachnoid hemorrhage. Head CT scan #3 done October 20 is stable. The patient is currently asymptomatic. Avoid subcutaneous heparin or Lovenox. No systemic anticoagulation, aspirin, nonsteroidal anti-inflammatory medication (3) Hyperglycemia: Plan: Parenteral steroid induced. Now resolved off parenteral steroid therapy. Prednisone was tapered off and discontinued today, October 31. He is not diabetic. Sliding scale coverage was ordered temporarily. (4) Sinus tachycardia: Plan: Resolved with addition of metoprolol. Metoprolol dosage down titrated today, October 31. Plan Discharge to SNF or [facility] when medical assistance has been granted and arrangements are finalized Admission and Anticipated Discharge Date Admission Date: October 19, 2024 Subjective Alert and oriented. No distress. Prednisone has been discontinued today, October 31. Metoprolol dosage down titrated today, October 31, due to much improved blood pressure and mild sinus bradycardia. Case management is pursuing medical assistance. Review of Systems 2 Review of Systems: Constitutionalno fever or chills ENTno blurred vision, no double vision, no epistaxis, no sore throat Respiratoryno cough, no wheezing, no shortness of breath Cardiacno palpitations, no chest pain, no syncope Lanny nausea, vomiting, diarrhea, melena, hematochezia GUno urinary retention, no urinary incontinence, no dysuria, no hematuria Musculoskeletalno joint pain, no muscle tenderness. Lumbar discomfort with movement Skinno bruising, no rashes, no pruritus Neurono isolated weakness, no paresthesia, no weakness Psychno depression, no anxiety Physical Exam 2 Physical Exam: General-alert and oriented x3, no fever, no chills HEENT-head atraumatic and normocephalic, pupils equal and reactive to light, extraocular muscles intact Neck-no lymphadenopathy or thyromegaly, trachea midline Chest-clear to auscultation. No rales, wheezing or rhonchi Cardiac-regular rate and rhythm, normal S1 and S2 Abdomen-normal bowel sounds, no hepatosplenomegaly Extremities-no cyanosis, clubbing, or edema GUFoley catheter in place with no evidence of hematuria Neuro-cranial nerves II through XII intact, motor and sensory function within normal limits, strength symmetrical, no focal deficits Psych-normal affect, normal mood Results & Data Results & Data Vital Signs (Past 12 Hours) Vital Signs Temp Pulse Resp BP Pulse Ox O2 Del Method 10/31/24 07:51 51 L 93/62 L 10/31/24 07:12 36.6 C 68 16 100/64 98 Room Air Laboratory Results 10/23/24 05:43 10/26/24 05:56 PG Care Time/CCT Total # of Minutes Spent Total Time Spent with Patient: Total time spent is greater than 50% in coordination of care (as documented) at patient's floor/unit and/or counseling patient: Coding Level of Care Code 80037 SUB INP/OBS CARE 3/50MIN Diagnoses Low back pain M54.50 Bilateral subdural hematomas S06.5XAA Hyperglycemia R73.9 Sinus tachycardia R00.0
[2024-11-01] MEDS: METOPROLOL SUCC 50MG EXT REL TAB PO SCH (09:23)
--- NOTE | 2024-11-01 15:02 | Discharge Summary ---
Discharge Summary Date of Service November 01, 2024 Principal Dx & Hospital Course #1 = Principal Diagnosis (1) Low back pain: Mr. Rios is a 69-year-old maleWith a recent history of subdural hematoma with a evacuation 10/11/2024 with bilateral drains and bur hole treatment at [facility]. He presented to the ER with back pain. He was found to have chronic compression fractures. MRIlumbar spine showed severe central spinal stenosis L4-5, mild residual edema from a T11 compression fracture likely reflecting ongoing healing, and altered signal in the CSF due to recent subarachnoid hemorrhage. Cauda equina syndrome was not present. He did have some radiating pain down both lower extremities. Case was reviewed by orthopedic spine. Extremity strength was intact and without asymmetry. He did not have saddle anesthesia. Vascularly intact. He was not recommended for surgical intervention. He completed a steroid taper while admitted with improvement, was given a TLSO brace and was recommended for ongoing supportive care and nonsurgical management. CThead showed near complete resolution of his prior left subdural hematoma, small amount of subarachnoid hemorrhage new or more apparent from prior and a small amount of intraventricular hemorrhage appeared to be new. This was reviewed by [facility] neurosurgery felt to be due to residual contrast versus reabsorption of blood. Serial imaging was stable and he was asymptomatic. (2) Bilateral subdural hematomas: Recently drained. Head CT scan #2 done on October 19 reveals evidence of a small amount of intraventricular hemorrhage and subarachnoid hemorrhage. Head CT scan #3 done October 20 is stable. The patient is currently asymptomatic. Avoid subcutaneous heparin or Lovenox. No systemic anticoagulation, aspirin, nonsteroidal anti-inflammatory medication (3) Hyperglycemia: (4) Sinus tachycardia: Resolved with addition of metoprolol. Metoprolol continued on discharge Admission HPI Per Admitting Provider 69-year-old male PMHx recent subdural hematoma that required evacuation on 10/11/2024 and had bilateral drains placed who is presenting with back pain worsening over the past 2 weeks. Was initially evaluated in the ED on 10/06/2024 after sustaining a fall off a porch that resulted in identification of bilateral acute appearing subdural hematomas, R >L, 8 mm leftward shift. Patient was transferred to [facility] at that time where a douglas hole completed with drains. Patient presenting now for worsening back pain, worse jos 4 days [employer]. Mainly lower back pain, radiation down BLE. Has not had any recent falls. Pain is localized to low back, sharp in nature. Pain down bilateral legs feels like tightness, occasional burning sensation at heels. Patient without bowel or bladder incontinence. No saddle anesthesia. Patient has been unable to ambulate independently, requiring assistance from family members. Difficulty sitting up secondary to pain. Denies chest pain, SOB, palpitations, abdominal pain, N/V/D/C, numbness/tingling aside from legs, URI symptoms, LUTS, fever/chills, weakness, syncope or LOC. Patient does not take any daily medications. Has been trying [id number] medications to help alleviate pain, minimal relief. Patient son-in-law is present in room at time of visit, helps provide history. Patient is to follow with [facility] orthopedic provider on 10/21/2024. ED evaluation reveals leukocytosis 12.82, H&H stable; PT/INR WNL; CMP potassium 135, BUN/creatinine ratio 23.5, glucose 157, AST 41; UA negative for infection; lumbar spine CT mild chronic appearing vertebral body compression fracture at L1, no other lumbar fracture or subluxation seen, lumbar degenerative findings with moderate severe central canal narrowing at L4-L5; R shoulder XR. Distal tip of fracture clavicle appears closer to the skin surface but otherwise stable; head CT significant improvement of acute bilateral SDH with interval douglas holes, acute on chronic SDH right hemisphere mild acute SDH L frontal possibly also posterior falx/tentorium, intraventricular hemorrhage and subarachnoid hemorrhage present; lumbar spine MRI suspicious for subarachnoid hemorrhage, no definite epidural hematoma, severe central spinal stenosis L4-L5 degenerative, mild residual edema involving T11 compression fracture reflects ongoing healing.; Provided with 500 mL NSS, Zofran 4 mg IV, morphine 4 mg IV x [address] Please see Dr. Kevin's attestation for adjustments/additions to treatment plan. Discharge Plan Discharge Items Patient Disposition: Transfer Residential Fac Reason For Visit: ACUTE BACK PAIN Discharge Diagnosis: Lumbar stenosis causing back pain, essential hypertension with sinus tachycardia, constipation Condition on Discharge: Good Activity: Per Instructions section Activity Comment: As tolerated Non-emergency contact: Primary Care Provider Call non-emergency contact if: your symptoms worsen Follow-up/Referrals: [place] [facility],Medicine [Non-Staff] - (Am I Eligible for CVIM Services? To be eligible for CVIM services, you must meet the following criteria: Household Income: Your household income should be at or below 250% of the Federal Poverty Level Residence or Employment: You should either live or work in [facility]. Insurance Status: You should not have insurance coverage for the specific services you are applying for. If you want to learn more about becoming a CVIM patient, take the following steps: Contact Us: Call [phone] to speak with our team and get information. Online Submission: Alternatively, you can submit your information online using the form below. Fill out the form; our team will guide you through the next steps. [email or web address]) PCP,NO [Primary Care Provider] - Diet: Regular Addtl Attending Provider Instructions: You are seen in the hospital for acute back pain. You had a known T1 11/L1 compression fracture with normal healing. Her case was reviewed by [facility] neurosurgery prior to admission, you did not require transfer and did not show signs of cauda equina syndrome requiring surgical intervention on your back. You have been prescribed a TLSO brace which you may wear for comfort. You may bear weight as tolerated. You completed a steroid taper while in the hospital You had a history of bilateral subdural hematomas recently drained. Your CT scans 10/19 showed a small amount of hemorrhage and subarachnoid hemorrhage, and a repeat head scan on October 20 was stable. Your case was reviewed by [facility] neurosurgery. These findings likely represent residual contrast versus blood reabsorption, no intervention was required for this. You should not be put on a blood thinner, aspirin, or take any NSAIDs including ibuprofen Is recommended that you take a calcium and vitamin D supplement daily on discharge. Please continue to take metoprolol 75 mg twice daily for heart rate and blood pressure. If you develop any new or worsening symptoms including fever, chills, sweats, chest pain, chest pressure, difficulty breathing, uncontrolled nausea/vomiting, rash, wheezing, passing out or nearly passing out, bleeding, black/bloody bowel movements, or other new or concerning symptoms please call your primary care physician , or call 911 for re-evaluation in the emergency department if you are very concerned. Pending Studies at Discharge: No Stand-Alone Forms: My [facility] Skilled Items Patient informed of condition?: Yes DNR: No Discharge Level of Care: Acute rehab Communicable Disease: No Discharge Prognosis: Stable Lines: None Urinary Catheter: No Medications and DC Order Prescriptions: New oxycodone 5 mg Tablet 5 mg PO Q4H PRNQty: 0 0RF tamsulosin 0.4 mg Capsule 0.4 mg PO QAM Qty: 0 0RF sennosides [Senokot] 8.6 mg Tablet 17.2 mg PO BID Qty: 0 0RF polyethylene glycol 3350 [Miralax] 17 gram Powder In Packet 17 g PO BID Qty: 0 0RF docusate sodium 100 mg Capsule 100 mg PO BID Qty: 0 0RF metoprolol tartrate 25 mg Tablet 75 mg PO BID Qty: 0 0RF Continued One A Day Men Complete 240-25-300 mcg Tablet 1 tab PO DAILY Discharge Orders: Discharge Order (Routine); Ordered 11/01/24 Ordered By: Rodrick Roy Admission Data Admit Date/Time: 10/19/24 00:35 Attending Provider: Rodrick Roy Admit Provider: Jose Daniel Kevin Primary Care Provider: PCP,NO Other Providers: [facility] [place],[facility]; Jose Daniel Kevin; Jesus Morfin; Kian Barrow; [facility]; [place], Hospital Stay Data Consultations 10/18/24 23:59 ED Decision to Admit Stat 10/21/24 08:48 Consult Orthopedic Spine Surgery Routine 10/21/24 09:55 Consult Orthopedic Spine Surgery Routine Diagnostic Imagining Performed 10/18/24 14:36 CT lumbar spine wo con Stat 10/18/24 15:43 MRI Lumbar Spine [MR lumbar spine wo con] Stat 10/18/24 21:04 CT head/brain wo con Stat 10/19/24 08:00 CT head/brain wo con Routine 10/20/24 08:00 CT head/brain wo con DAILY 10/23/24 10:34 MRI Thoracic [MR thoracic spine wo con] Routine Pending Results Patient Have Any Pending Studies at Discharge: No Discharge Instructions Given to Patient (Per Discharging Provider) You are seen in the hospital for acute back pain. You had a known T1 11/L1 compression fracture with normal healing. Her case was reviewed by [facility] neurosurgery prior to admission, you did not require transfer and did not show signs of cauda equina syndrome requiring surgical intervention on your back. You have been prescribed a TLSO brace which you may wear for comfort. You may bear weight as tolerated. You completed a steroid taper while in the hospital You had a history of bilateral subdural hematomas recently drained. Your CT scans 10/19 showed a small amount of hemorrhage and subarachnoid hemorrhage, and a repeat head scan on October 20 was stable. Your case was reviewed by [facility] neurosurgery. These findings likely represent residual contrast versus blood reabsorption, no intervention was required for this. You should not be put on a blood thinner, aspirin, or take any NSAIDs including ibuprofen Is recommended that you take a calcium and vitamin D supplement daily on discharge. Please continue to take metoprolol 75 mg twice daily for heart rate and blood pressure. If you develop any new or worsening symptoms including fever, chills, sweats, chest pain, chest pressure, difficulty breathing, uncontrolled nausea/vomiting, rash, wheezing, passing out or nearly passing out, bleeding, black/bloody bowel movements, or other new or concerning symptoms please call your primary care physician , or call 911 for re-evaluation in the emergency department if you are very concerned. Total Time Total Time Spent Total Time Spent (In Minutes): Time spend day of discharge 40 minutes including direct patient care, documentation, review of labs and images, and coordination of care. Coding Level of Care Code 39964 INP/OBS DISCH >30 MIN Diagnoses Low back pain M54.50 Bilateral subdural hematomas S06.5XAA Hyperglycemia R73.9 Sinus tachycardia R00.0
[2024-11-01 15:32] VITALS: BP 110/68; PULSE 78; TEMP 97.9; O2SAT 99
== END 2024-11-01 17:58 | DRG 552 ==
LOC: ED 13:50 → SUATTDRO 10-19 00:35 → 2S 10-19 00:35 → 3E 10-22 17:28